=== PATIENT | female | born 1980 | race African-American/Black ===

== ENCOUNTER 2023-10-01 01:00 | Emergency (ER) | payer BC ==
--- OUTSIDE RECORDS SUMMARY | 2023-10-01 01:08 | XMS REPORT | Continuity of Care Document ---
Author Name Unknown Address [address] [facility] [address] [place] [address] [facility] thconnect Address [address] [facility] [address] [place] [address] Support Name Relationship Address Phone ROJAS PATE, BEATRIZ Mejia Emergency Provider [address] [place] [address] EVELYN PATE, MARQUISE Primary Care Physician [address] [facility] [address] [place] [address] JAIRO TREJO Family Member [address] [place] [address] SAUL PATE, MARY Arciniega Emergency Provider [address] [place] [address] RANDI PATE, MELISSA Reese Emergency Provider [address] [facility] [address] [place] [address] RENA PATE, YOUSIF Morrison Emergency Provider [address] [place], [place] [address] Jaylen CAROLINA DO Emergency Provider [address] [place] [address] ADELAIDA BARNES JR Attending Provider [address] [facility] [address] [place] [address] MD KIRSTIE VELASQUEZ MD Emergency Provider [address] [place] [address] MD KHANH CEDEÑO Emergency Provider Unknown Unava ilMD MARQUISE Sharif Primary Care Physician [address] [place] [address] DO AVERY MELO Emergency Provider [address] [address] MD GASPER RIZO Emergency Provider [address] [place] [address] MD JAIDA CLEMENT Emergency Provider [address] [place] [address] DO EFRAÍN DÍAZ Admitting Provider [address] [place] [address] CHELSIE TREJO Emergency Contact [address] [place] [address] ANA TREJO Guarantor [address] [place] [address] MD GINGER CERON Emergency Provider [address] [place] [address] Care Team Providers Care Stitch Bonding Machine Drawer In Name Role Phone GINGER CERON Attending Clinician Unavailab CRUZ Vallejo Attending Clinician Unavailable Nicole Attending Clinician Unavailable AMBROCIO LOPEZ Attending Clinician Unavailabl mary ann Ayeni_Ibitoye_Olubu Attending Clinician Unavaila clive Dorman Attending Clinician Unavailable EFRAÍN DÍAZ Attending Clinician Unavailable ISAMAR DALLAS Attending Clinician Unavailab Marquise Ordonez Attending Clinician Unavailab GASPER Bojorquez Attending Clinician UnavailKIRSTIE Alexander Attending Clinician Unavailable AVERY MELO Attending Clinician Unavailable KHANH CEDEÑO Attending Clinician Unavailable TALA DAVEY Attending Clinician Unavaila BILLY Gerardo Attending Clinician Unavail able MELISSA BRYAN Attending Clinician Unavailable ADELAIDA BARNES Attending Clinician Unavailable YOUSIF CHASE Attending Clinician Unavailable BEATRIZ XIE Attending Clinician Unavail able MARY HUGHES Attending Clinician Unavailable HOLLIE HAN Attending Clinician Unavailabl VIRY Epstein Attending Clinician Unavailable MELINA KIM Attending Clinician Unavailable MATT XAVIER Attending Clinician Unavailable Aaron Greenberg Attending Clinician Unavailable ANA PAULA RICHARDSON Attending Clinician Unavailab JESÚS quezada BA Attending Clinician Unavailable MASOUD CLARK Attending Clinician Unavailab FLAKITA Alvarado Attending Clinician Unavailable KADIE CHOI Attending Clinician Unavailable ROBI BENITES Attending Clinician SHEREE Jain Attending Clinician UnavailISSA Contreras Attending Clinician Un available KHANH JAUREGUI Attending Clinician UnavailLULU Harrison Attending Clinician Unavailable Zuniga_F Admitting Clinician Unavailable Ayeni_Ibitoye_Olubu Admitting Clinician Unavaila clive Hawkins_M Admitting Clinician Unavailable EFRAÍN DÍAZ Admitting Clinician Unavailable BILLY RACHEL Admitting Clinician Unavail able ADELAIDA BARNES Admitting Clinician Unavailable Aaron Greenberg Admitting Clinician Unavailable KHANH JAUREGUI Admitting Clinician Unavailelissa reese Payers Payer Name Policy Type Policy Number Effective Date Expirati on Date Source [place] [id number] 2020 00:00:00 AETNA (POS) [id number] 2014 00:00:00 Problems Condition Name Condition Details Condition Category Status Onset Date Resolution Date Last Treatment Date Treating Clinician Comments Source Acute urinary tract infection Acute Urinary Tract Infection Problem Active 01-30 00:00: 00 [facility] Allergies, Adverse Reactions, Alerts Allergy Name Allergy Type Status Severity Reaction(s) Onset Date Inactive Date Treating Clinician Comments Source PENICILL INS Allergy to substanc e Active [facility] Codeine Allergy to substanc e Active [facility] Tylenol Allergy to substanc e Active [facility] Social History Smoking Status Start Date Stop Date Source Former Smoker [facility] Medications Ordered Medication Name Filled Medication Name Start Date Stop Date Current Medication? Ordering Clinician Indication Dosage Frequency Signature (SIG) Comments Components Source Kenalog 40 mg/mL suspension for injectionTa ke 1 mL by injection route. Kenalog 40 mg/mL suspension for injectionTa ke 1 mL by injection route. 02-26 17:05: 00 No Kenalog 40 mg/mL suspension for injectionT efar 1 mL by injection route. [facility] ciprofloxac in 500 mg tablet TAKE 1 TABLET EVERY 12 HOURS BY ORAL ROUTE FOR 10 DAYS. ciprofloxac in 500 mg tablet TAKE 1 TABLET EVERY 12 HOURS BY ORAL ROUTE FOR 10 DAYS. No ciprofloxa evelia 500 mg tablet TAKE 1 TABLET EVERY 12 HOURS BY ORAL ROUTE FOR 10 DAYS. [facility] metronidazo le 500 mg tablet TAKE 1 TABLET EVERY 8 HOURS BY ORAL ROUTE FOR 10 DAYS. metronidazo le 500 mg tablet TAKE 1 TABLET EVERY 8 HOURS BY ORAL ROUTE FOR 10 DAYS. No metronidaz ole 500 mg tablet TAKE 1 TABLET EVERY 8 HOURS BY ORAL ROUTE FOR 10 DAYS. [facility] Medrol (Lázaro) 4 mg tablets in a dose pack Take 1 dose pk by oral route as directed. Medrol (Lázaro) 4 mg tablets in a dose pack Take 1 dose pk by oral route as directed. No 1dose pk(s) Medrol (Lázaro) 4 mg tablets in a dose pack Take 1 dose pk by oral route as directed. [facility] clotrimazol e-betametha sone 1 %-0.05 % topical cream APPLY TO THE AFFECTED AND SURROUNDING AREAS OF SKIN BY TOPICAL ROUTE 2 TIMES PER DAY IN THE MORNING AND EVENING FOR 2 WEEKS clotrimazol e-betametha sone 1 %-0.05 % topical cream APPLY TO THE AFFECTED AND SURROUNDING AREAS OF SKIN BY TOPICAL ROUTE 2 TIMES PER DAY IN THE MORNING AND EVENING FOR 2 WEEKS No clotrimazo le-betamet hasone 1 %-0.05 % topical cream APPLY TO THE AFFECTED AND SURROUNDIN G AREAS OF SKIN BY TOPICAL ROUTE 2 TIMES PER DAY IN THE MORNING AND EVENING FOR 2 WEEKS [facility] Vital Signs Vital Name Observation Time Observation Value Comments S ource Height 2023-02-18 00:00:00 67 [in_i] [facility] Body Weight 2023-02-18 00:00:00 3376 [oz_av] [facility] BP Systolic 2023-02-18 00:00:00 126 mm[Hg] [facility] BMI (Body Mass Index) 2023-02-18 00:00:00 33 kg/m2 [facility] BP Diastolic 2023-02-18 00:00:00 85 mm[Hg] [facility] BP Diastolic 2022-02-26 00:00:00 82 mm[Hg] [facility] Height 2022-02-26 00:00:00 67 [in_i] [facility] BMI (Body Mass Index) 2022-02-26 00:00:00 31.1 kg/m2 [facility] BP Systolic 2022-02-26 00:00:00 122 mm[Hg] [facility] Body Weight 2022-02-26 00:00:00 3176 [oz_av] [facility] BP Diastolic 2022-02-17 00:00:00 60 mm[Hg] [facility] Height 2022-02-17 00:00:00 67 [in_i] [facility] BMI (Body Mass Index) 2022-02-17 00:00:00 31.8 kg/m2 [facility] BP Systolic 2022-02-17 00:00:00 120 mm[Hg] [facility] Body Weight 2022-02-17 00:00:00 203 [lb_av] [facility] BP Diastolic 2022-01-28 00:00:00 65 mm[Hg] [facility] Height 2022-01-28 00:00:00 67 [in_i] [facility] BMI (Body Mass Index) 2022-01-28 00:00:00 31.9 kg/m2 [facility] BP Systolic 2022-01-28 00:00:00 106 mm[Hg] [facility] Body Weight 2022-01-28 00:00:00 3257.6 [oz_av] [facility] BP Diastolic 2021-06-27 00:00:00 73 mm[Hg] [facility] Height 2021-06-27 00:00:00 67 [in_i] [facility] BMI (Body Mass Index) 2021-06-27 00:00:00 31.3 kg/m2 [facility] BP Systolic 2021-06-27 00:00:00 108 mm[Hg] [facility] Body Weight 2021-06-27 00:00:00 3201 [oz_av] [facility] BP Diastolic 2021-06-20 00:00:00 78 mm[Hg] [facility] Height 2021-06-20 00:00:00 67 [in_i] [facility] BMI (Body Mass Index) 2021-06-20 00:00:00 31.2 kg/m2 [facility] BP Systolic 2021-06-20 00:00:00 112 mm[Hg] [facility] Body Weight 2021-06-20 00:00:00 3184 [oz_av] [facility] BP Diastolic 2021-05-15 00:00:00 73 mm[Hg] [facility] Height 2021-05-15 00:00:00 67 [in_i] [facility] BMI (Body Mass Index) 2021-05-15 00:00:00 31.7 kg/m2 [facility] BP Systolic 2021-05-15 00:00:00 112 mm[Hg] [facility] Body Weight 2021-05-15 00:00:00 3239 [oz_av] [facility] BP Diastolic 2021-05-08 00:00:00 66 mm[Hg] [facility] Height 2021-05-08 00:00:00 67 [in_i] [facility] BMI (Body Mass Index) 2021-05-08 00:00:00 31.3 kg/m2 [facility] BP Systolic 2021-05-08 00:00:00 98 mm[Hg] [facility] Body Weight 2021-05-08 00:00:00 3201 [oz_av] [facility] BP Diastolic 2021-03-14 00:00:00 72 mm[Hg] [facility] Height 2021-03-14 00:00:00 67 [in_i] [facility] BMI (Body Mass Index) 2021-03-14 00:00:00 31.8 kg/m2 [facility] BP Systolic 2021-03-14 00:00:00 106 mm[Hg] [facility] Body Weight 2021-03-14 00:00:00 3248 [oz_av] [facility] BP Diastolic 2021-01-30 00:00:00 75 mm[Hg] [facility] Height 2021-01-30 00:00:00 67 [in_i] [facility] BMI (Body Mass Index) 2021-01-30 00:00:00 32.1 kg/m2 [facility] BP Systolic 2021-01-30 00:00:00 119 mm[Hg] [facility] Body Weight 2021-01-30 00:00:00 3280 [oz_av] [facility] Height 2020-08-21 00:00:00 67 [in_i] [facility] BMI (Body Mass Index) 2020-08-21 00:00:00 33.3 kg/m2 [facility] BP Systolic 2020-08-21 00:00:00 108 mm[Hg] [facility] Body Weight 2020-08-21 00:00:00 3401 [oz_av] [facility] BP Diastolic 2020-08-21 00:00:00 71 mm[Hg] [facility] Height 2020-05-14 00:00:00 67 [in_i] [facility] BMI (Body Mass Index) 2020-05-14 00:00:00 32.3 kg/m2 [facility] Body Weight 2020-05-14 00:00:00 3296 [oz_av] [facility] BP Diastolic 2020-05-01 00:00:00 74 mm[Hg] [facility] Height 2020-05-01 00:00:00 67 [in_i] [facility] BMI (Body Mass Index) 2020-05-01 00:00:00 32.3 kg/m2 [facility] BP Systolic 2020-05-01 00:00:00 112 mm[Hg] [facility] Body Weight 2020-05-01 00:00:00 3297 [oz_av] [facility] BP Diastolic 2020-03-13 00:00:00 60 mm[Hg] [facility] Height 2020-03-13 00:00:00 67 [in_i] [facility] BMI (Body Mass Index) 2020-03-13 00:00:00 33.2 kg/m2 [facility] BP Systolic 2020-03-13 00:00:00 118 mm[Hg] [facility] Body Weight 2020-03-13 00:00:00 212 [lb_av] [facility] BP Diastolic 2020-02-23 00:00:00 68 mm[Hg] [facility] Height 2020-02-23 00:00:00 67 [in_i] [facility] BMI (Body Mass Index) 2020-02-23 00:00:00 32.3 kg/m2 [facility] BP Systolic 2020-02-23 00:00:00 107 mm[Hg] [facility] Body Weight 2020-02-23 00:00:00 3301 [oz_av] [facility] BP Diastolic 2019-08-02 00:00:00 74 mm[Hg] [facility] Height 2019-08-02 00:00:00 67 [in_i] [facility] BMI (Body Mass Index) 2019-08-02 00:00:00 33.5 kg/m2 [facility] BP Systolic 2019-08-02 00:00:00 121 mm[Hg] [facility] Body Weight 2019-08-02 00:00:00 214 [lb_av] [facility] BP Diastolic 2019-07-26 00:00:00 73 mm[Hg] [facility] Height 2019-07-26 00:00:00 67 [in_i] [facility] BMI (Body Mass Index) 2019-07-26 00:00:00 33.5 kg/m2 [facility] BP Systolic 2019-07-26 00:00:00 118 mm[Hg] [facility] Body Weight 2019-07-26 00:00:00 214 [lb_av] [facility] BP Diastolic 2019-07-21 00:00:00 78 mm[Hg] [facility] Height 2019-07-21 00:00:00 67 [in_i] [facility] BMI (Body Mass Index) 2019-07-21 00:00:00 33.7 kg/m2 [facility] BP Systolic 2019-07-21 00:00:00 113 mm[Hg] [facility] Body Weight 2019-07-21 00:00:00 3441 [oz_av] [facility] BP Diastolic 2019-02-08 00:00:00 75 mm[Hg] [facility] Height 2019-02-08 00:00:00 67 [in_i] [facility] BMI (Body Mass Index) 2019-02-08 00:00:00 36.5 kg/m2 [facility] BP Systolic 2019-02-08 00:00:00 117 mm[Hg] [facility] Body Weight 2019-02-08 00:00:00 3728 [oz_av] [facility] Procedures Procedure Date / Time Performed Performing Clinician Source Laparoscopic Appendectomy 2022-01-29 00:00:[address] [facility] [address], abdomen + pelvis, w/ contrast 2022-01-28 00:00:00 [facility] XR, ankle 2021-05-08 [facility] Delivery [facility] Cholecystectomy [facility] Plan of Care Planned Activity Planned Date Details Comments Source Diagnostic Test Pending 2022-01-28 00:00:00 urinalysis, dipstick [code = urinalysis, dipstick] [facility] Diagnostic Test Pending 2022-01-28 00:00:00 rapid SARS CoV + SARS CoV 2 Ag, QL IA, respiratory specimen [code = rapid SARS CoV + SARS CoV 2 Ag, QL IA, respiratory specimen] [facility] Diagnostic Test Pending 2022-01-28 00:00:00 CBC w/ auto diff [code = CBC w/ auto diff] [facility] Diagnostic Test Pending 2022-01-28 00:00:00 CMP, serum or plasma [code = CMP, serum or plasma] [facility] Diagnostic Test Pending 2022-01-28 00:00:00 test, urine [code = test, urine] [facility] Instructions [facility] Encounters Start Date/Time End Date/Time Encounter Type Admission Type Attending Clinicians Care Facility Care Department Encounter ID Source 2023-09-30 23:18:00 2023-09-30 23:48:00 Emergency ER GINGER CERON [facility] [id number] [facility] 2023-09-30 23:18:00 2023-09-30 23:48:00 emergency [facility] [id number] 2023-08-03 07:48:00 2023-08-03 10:10:00 Emergency ER CRUZ NAZARIO [facility] [id number] [facility] 2023-08-03 07:48:00 2023-08-03 10:10:00 emergency [facility] [id number] 2023-06-12 00:00:00 2023-06-12 00:00:00 Outpatient Zuniga_F [facility] [id number] [facility] 2023-05-26 00:00:00 2023-05-26 00:00:00 Outpatient Zuniga_F MMG MM[facility] [id number] [facility] 2023-04-21 23:49:00 2023-04-22 05:09:00 Emergency ER AMBROCIO LOPEZ [facility] [id number] [facility] 2023-04-21 23:49:00 2023-04-22 05:09:00 emergency [facility] [id number] 2023-04-21 00:00:00 2023-04-21 00:00:00 Outpatient Zuniga_F MMG [facility] [id number] [facility] 2023-04-16 00:00:00 2023-04-16 00:00:00 Outpatient Zuniga_F MMG [facility] [id number] [facility] 2023-04-01 00:00:00 2023-04-01 00:00:00 Outpatient Zuniga_F MMG [facility] [id number] [facility] 2023-03-17 00:00:00 2023-03-17 00:00:00 Outpatient Zuniga_F MMG [facility] [id number] [facility] 2023-03-03 21:19:00 2023-03-03 23:45:00 Emergency ER CRUZ NAZARIO [facility] [id number] [facility] 2023-02-18 00:00:00 2023-02-18 00:00:00 Outpatient Zuniga_F MMG [facility] [id number] [facility] 2023-02-18 00:00:00 2023-02-18 00:00:00 Marquise Zhou MD: [address] [place] [address], [address], [place] [address] , Ph. [facility] [id number] [facility] 2023-01-15 00:00:00 2023-01-15 00:00:00 Outpatient Zuniga_F MMG [facility] [id number] [facility] 2023-01-15 00:00:00 2023-01-15 00:00:00 Outpatient Zuniga_F MMG [facility] [id number] [facility] 2023-01-01 19:35:00 2023-01-01 22:18:00 Emergency ER CRUZ NAZARIO [facility] [id number] [facility] 2022-09-02 00:00:00 2022-09-02 00:00:00 Outpatient Ayeni_Ibito ye_Olubu [facility] [id number] [facility] 2022-09-02 00:00:00 2022-09-02 00:00:00 Outpatient Zuniga_F MMG MMG [id number] [facility] 2022-09-02 00:00:00 2022-09-02 00:00:00 Outpatient Zuniga_F MMG MMG [id number] [facility] 2022-07-23 16:39:00 2022-07-23 19:06:00 Emergency ER JESSIKASatishAMBROCIO [facility] [id number] [facility] 2022-04-21 00:00:00 2022-04-21 00:00:00 Outpatient Zuniga_F MMG MMG [id number] [facility] 2022-03-14 00:00:00 2022-03-14 00:00:00 Outpatient Zuniga_F MMG MMG [id number] [facility] 2022-02-27 00:00:00 2022-02-27 00:00:00 Outpatient Zuniga_F MMG MMG [id number] [facility] 2022-02-26 00:00:00 2022-02-26 00:00:00 Outpatient Zuniga_F MMG MMG [id number] [facility] 2022-02-26 00:00:00 2022-02-26 00:00:00 Marquise Zhou MD: [address] [place] [address] [address] [address] , Ph. MMG [facility] [id number] [facility] 2022-02-22 00:00:00 2022-02-22 00:00:00 Outpatient Zuniga_F MMG MMG [id number] [facility] 2022-02-20 00:00:00 2022-02-20 00:00:00 Outpatient Zuniga_F MMG MMG [id number] [facility] 2022-02-17 00:00:00 2022-02-17 00:00:00 Outpatient Zuniga_F MMG MMG [id number] [facility] 2022-02-17 00:00:00 2022-02-17 00:00:00 Efraín Díaz DO: [address] [facility] [address], [place] [address] , Ph. [phone] MMG [facility] surgery [id number] [facility] 2022-02-13 00:00:00 2022-02-13 00:00:00 Outpatient Zuniga_F MMG MM[facility] [id number] [facility] 2022-01-31 00:00:00 2022-01-31 00:00:00 Outpatient Chad_M MMG MMG [id number] [facility] 2022-01-29 15:44:00 2022-01-30 14:20:00 Inpatient ER EFRAÍN DÍAZ [facility] [id number] [facility] 2022-01-28 09:01:00 2022-01-28 09:01:00 Outpatient ISAMAR VELA [facility] [id number] [facility] 2022-01-28 00:00:00 2022-01-28 00:00:00 Outpatient Chad_M MMG MMG [id number] [facility] 2022-01-28 00:00:00 2022-01-28 00:00:00 Isamar Dallas, LOT ASSOCIATE: [address] [facility] [address], [place] [address] , Ph[address] MMG [facility] [id number] [facility] 2021-07-05 04:32:00 2021-07-05 04:32:00 Outpatient Zuniga_F MMG MMG [id number] [facility] 2021-06-27 00:00:00 2021-06-27 00:00:00 Marquise Zhou MD: [address] [facility] [address] [address] , Ph. Zuniga_F MMG [facility] [id number] [facility] 2021-06-21 03:36:00 2021-06-21 03:36:00 Outpatient Zuniga_F MMG MMG [id number] [facility] 2021-06-20 00:00:00 2021-06-20 00:00:00 Marquise Zhou MD: [address] [facility] [address] [address] , Ph. Zuniga_F MMG [facility] [id number] [facility] 2021-06-06 11:11:00 2021-06-06 11:11:00 Outpatient Zuniga_F MMG MMG [id number] [facility] 2021-05-19 01:22:00 2021-05-19 01:22:00 Outpatient Zuniga_F MMG MMG [id number] [facility] 2021-05-15 00:00:00 2021-05-15 00:00:00 Marquise Zhou MD: [address] [facility] [address] [place] [address] , Ph. Zuniga_F MMG [facility] [id number] [facility] 2021-05-14 11:11:00 2021-05-14 11:11:00 Outpatient Zuniga_F MMG MMG [id number] [facility] 2021-05-08 11:18:00 2021-05-08 11:18:00 Outpatient EL ZhouMarquise [facility] [id number] [facility] 2021-05-08 00:00:00 2021-05-08 00:00:00 Marquise Zhou MD: [address] [facility] [address], [place] [address] , Ph. Emigdiobarbra_F MMG [facility] [id number] [facility] 2021-03-21 05:54:00 2021-03-21 05:54:00 [facility] [id number] [facility] 2021-03-14 00:00:00 2021-03-14 00:00:00 Marquise Zhou MD: [address] [facility] [address], [place] [address] , Ph. Hawkins_M MMG [facility] [id number] [facility] 2021-02-21 04:02:00 2021-02-21 04:02:00 [place]patient [place] [id number] [facility] 2021-01-30 00:00:00 2021-01-30 00:00:00 Isamar Dallas, LOT ASSOCIATE: [address] [facility] [address], [place] [address] , Ph. Christinakins_M MMG [facility] [id number] [facility] 2020-11-07 23:14:00 2020-11-08 00:35:00 Emergency ER GASPER ROMAN [facility] [id number] [facility] 2020-09-24 07:21:00 2020-09-24 11:36:00 Emergency ER KIRSTIE VELASQUEZ [facility] [id number] [facility] 2020-08-21 00:00:00 2020-08-21 00:00:00 Marquise Zhou MD: [address] [facility] [address], [place] [address] , Ph. Zuniga_F MMG [facility] [id number] [facility] 2020-05-15 09:13:00 2020-05-15 09:13:00 Outpatient Zuniga_F MMG MMG [id number] [facility] 2020-05-14 00:00:00 2020-05-14 00:00:00 Marquise Zhou MD: [address] [facility] [address], [place] [address] , Ph. Zuniga_F MMG [facility] 1213 [facility] 2020-05-01 00:00:00 2020-05-01 00:00:00 Marquise Zhou MD: [address] [facility] [address], [place] [address] , Ph. Zuniga_F MMG [facility] 1201 [facility] 2020-04-30 03:49:00 2020-04-30 03:49:00 Outpatient Zuniga_F MMG MMG [id number] [facility] 2020-04-28 00:53:00 2020-04-28 02:38:00 Emergency ER AVERY MELO [facility] [id number] [facility] [facility] 2020-04-27 11:02:00 2020-04-27 11:51:00 Emergency ER KHANH CEDEÑO [facility] [id number] [facility] 2020-04-18 02:46:00 2020-04-18 02:46:00 Outpatient Zuniga_F [facility] [id number] [facility] 2020-04-08 01:05:00 2020-04-08 01:05:00 Outpatient Zuniga_F MMG MMG [id number] [facility] 2020-03-28 07:30:00 2020-03-28 07:30:00 Outpatient GUALBERTO DAVEYTALA [facility] [id number] [facility] 2020-03-28 05:24:00 2020-03-28 05:24:00 Outpatient Zuniga_F MMG MMG [id number] [facility] 2020-03-27 11:13:00 2020-03-27 11:13:00 Outpatient Zuniga_F MMG MMG [id number] [facility] 2020-03-16 01:21:00 2020-03-16 01:21:00 Outpatient Zuniga_F MMG MMG [id number] [facility] 2020-03-13 00:00:00 2020-03-13 00:00:00 Tala Davey MD: [address] [address] , Ph. [phone] Zuniga_F MMG [facility] surgery [id number] 1013 [facility] 2020-03-12 11:01:00 2020-03-12 11:01:00 Outpatient Zuniga_F MMG MMG [id number] [facility] 2020-03-07 11:19:00 2020-03-07 11:19:00 Outpatient ISAMAR VELA [facility] [id number] [facility] 2020-03-04 01:03:00 2020-03-04 01:03:00 Outpatient Zuniga_F MMG MMG [id number] [facility] 2020-02-23 00:00:00 2020-02-23 00:00:00 Isamar Dallas LOT ASSOCIATE: [address] [facility] [address] [address] , Ph. Zuniga_F MMG [facility] [id number] 0924 [facility] 2020-02-04 08:36:00 2020-02-04 08:36:00 Outpatient Zuniga_F MMG MMG [id number] [id number] [facility] 2020-02-02 11:08:00 2020-02-02 11:08:00 Outpatient GUALBERTO Zhou, Marquise [facility] [id number] [facility] 2020-02-01 00:00:00 2020-02-01 00:00:00 Marquise Zhou MD: [address] [facility] [address], [place] [address] , Ph. Zuniga_F MMG [facility] 0902 [facility] 2019-12-08 11:03:00 2019-12-08 11:03:00 Outpatient Zuniga_F MMG MMG [id number] [facility] 2019-10-13 11:03:00 2019-10-13 11:03:00 Outpatient Zuniga_F MMG MMG [id number] [facility] 2019-09-08 12:05:00 2019-09-08 12:05:00 Outpatient Zuniga_F MMG MMG [id number] [facility] 2019-08-31 11:52:00 2019-08-31 11:52:00 Outpatient Zuniga_F MMG MMG [id number] [facility] 2019-08-30 00:00:00 2019-08-30 00:00:00 Tala Davey MD: [address] [facility] [address], [place] [address] , Ph. [phone] Zuniga_F MMG [facility] [id number] 0331 [facility] 2019-08-26 12:43:00 2019-08-26 12:43:00 Outpatient Zuniga_F MMG MMG [id number] [facility] 2019-08-02 00:00:00 2019-08-02 00:00:00 Tala Davey MD: [address] [facility] [address] [id number] , Ph. [phone] Zuniga_F MMG [facility] 0303 [facility] 2019-07-27 03:01:00 2019-07-27 03:01:00 Outpatient Zuniga_F MMG MMG [id number] [facility] 2019-07-26 00:00:00 2019-07-26 00:00:00 Tala Davey MD: [address] [facility] [address] [id number] , Ph. [phone] Zuniga_F MMG [facility] 5 [facility] 2019-07-23 05:11:00 2019-07-23 05:11:00 Outpatient Zuniga_F MMG MMG [id number] [facility] 2019-07-21 00:00:00 2019-07-21 00:00:00 Marquise Zhou MD: [address] [facility] [address] [place], [place] [address] , Ph. Zuniga_F MMG [facility] 0 [facility] 2019-07-11 11:17:00 2019-07-11 11:17:00 Outpatient Zuniga_F MMG MMG 0 [facility] 2019-07-06 11:21:00 2019-07-08 16:03:00 Inpatient ER BILLY RACHEL [facility] [id number] [facility] 2019-07-03 23:45:00 2019-07-04 02:15:00 Emergency ER MELISSA BRYAN [facility] [id number] [facility] 2019-05-27 18:14:00 2019-05-27 20:07:00 Emergency ER GASPER ROMAN [facility] [id number] [facility] 2019-02-08 00:00:00 2019-02-08 00:00:00 Marquise Zhou MD: [address] [facility], [address], [place] [address] , Ph. MMG [place] [facility] 909 [facility] 2019-02-06 07:37:00 2019-02-06 07:37:00 Emergency ER KIRSTIE VELASQUEZ [facility] [id number] [facility] 2019-01-10 16:47:00 2019-01-11 17:39:00 Inpatient ER ADELAIDA [facility]ES [facility] [id number] [facility] 2018-12-16 16:46:00 2018-12-16 19:22:00 Emergency ER YOUSIF CHASE [facility] [id number] [facility] 2018-09-07 16:15:00 2018-09-07 19:15:00 Emergency ER MELISSA BRYAN [facility] [id number] [facility] 2018-09-05 15:02:00 2018-09-05 16:38:00 Emergency ER MELISSA BRYAN [facility] [id number] [facility] 2018-07-20 07:11:00 2018-07-20 08:51:00 Emergency ER BEATRIZ XIE [facility] [id number] [facility] 2018-06-19 13:36:00 2018-06-19 14:31:00 Emergency ER MARY HUGHES [facility] [id number] [facility] 2018-02-23 07:06:00 2018-02-23 10:04:00 Emergency ER BEATRIZ XIE [facility] [id number] [facility] 2017-12-15 10:13:00 2017-12-15 10:13:00 Outpatient Marquise Riddle [facility] [id number] [facility] 2017-12-02 13:57:00 2017-12-02 17:46:00 Emergency ER HAN HOLLIE [facility] [id number] [facility] 2017-11-26 18:53:00 2017-11-30 13:17:00 Inpatient ER NORMA RACHELDonna [facility] MED [id number] [facility] 2017-11-01 10:04:00 2017-11-01 11:09:00 Emergency ER BROOKLYN HANRGE [facility] [id number] [facility] 2017-08-18 17:17:00 2017-08-18 19:29:00 Emergency ER ROJAS BEATRIZ [facility] [id number] [facility] 2017-06-02 10:56:00 2017-06-02 10:56:00 Outpatient VIRY HUNTER [facility] [id number] [facility] 2017-04-27 11:06:00 2017-04-27 13:17:00 Emergency ER JARED CHASEValentina [facility] [id number] [facility] 2017-03-29 05:26:00 2017-03-29 06:41:00 Emergency ER MELINA KIM [facility] [id number] [facility] 2016-11-27 07:48:00 2016-11-27 11:24:00 Emergency ER MATT XAVIER [facility] [id number] [facility] 2016-11-23 12:55:00 2016-11-24 18:42:00 Inpatient ER Aaron Greenberg [facility] MED [id number] [facility] 2016-10-03 07:26:00 2016-10-03 08:47:00 Emergency ER ANA PAULA RICHARDSON [facility] [id number] [facility] 2016-03-11 11:30:00 2016-03-11 12:52:00 Emergency ER BEATRIZ XIE [facility] [id number] [facility] 2015-06-04 16:01:00 2015-06-04 16:38:00 Emergency ER BA, JESÚS [facility] [id number] [facility] 2015-02-11 11:02:00 2015-02-11 12:09:00 Emergency ER , WASIM [facility] [id number] [facility] 2014-01-01 08:06:00 2014-01-01 10:05:00 Emergency ER , WASIM [facility] [id number] [facility] 2013-12-06 17:52:00 2013-12-06 21:32:00 Emergency ER MELINA KIM [facility] [id number] [facility] 2013-11-28 15:51:00 2013-11-28 20:10:00 Emergency ER MASOUD CLARK [facility] [id number] [facility] 2013-10-26 10:12:00 2013-10-26 10:35:00 Emergency ER ANA PAULA RICHARDSON [facility] [id number] [facility] 2013-10-16 10:08:00 2013-10-16 11:33:00 Emergency ER BA, JESÚS [facility] [id number] [facility] 2013-08-31 07:55:00 2013-08-31 10:02:00 Emergency ER BA, JESÚS [facility] [id number] [facility] 2013-07-02 02:48:00 2013-07-02 04:11:00 Emergency ER DEBRA, CLEMENT [facility] [id number] [facility] 2013-04-12 09:11:00 2013-04-12 12:05:00 Emergency ER DEBRA, CLEMENT [facility] [id number] [facility] 2013-03-27 11:19:00 2013-03-27 12:06:00 Emergency ER SHEIKH WASALEXANDRIA [facility] [id number] [facility] 2013-03-23 10:36:00 2013-03-23 11:44:00 Emergency ER MELINA KIM [facility] [id number] [facility] 2012-09-30 08:01:00 2012-09-30 11:53:00 Emergency ER MELINA KIM [facility] [id number] [facility] 2012-07-30 08:56:00 2012-07-30 09:42:00 Emergency ER FLAKITA STEVENSON [facility] [id number] [facility] 2010-07-19 08:28:00 2010-07-19 09:35:00 Emergency ER RANJEETORALMAZ, CLEMENT [facility] [id number] [facility] 2010-04-05 11:22:00 2010-04-05 13:20:00 Emergency ER JIMBO, KADIE [facility] [id number] [facility] 2009-07-11 11:11:00 2009-07-11 12:32:00 Emergency ER UGORJI, CLEMENT [facility] [id number] [facility] 2008-05-16 19:25:00 2008-05-16 21:33:00 Emergency ER IMMARAJ, PREMSWARUP [facility] [id number] [facility] 2007-01-31 11:50:00 2007-01-31 15:08:00 Emergency ER SHEREE SORTO [facility] [id number] [facility] 2006-12-22 09:37:00 2006-12-22 10:25:00 Emergency ER SHEREE SORTO [facility] [id number] [facility] 2006-08-13 10:26:00 2006-08-13 12:00:00 Emergency ER ISSA ROBLES [facility] [id number] [facility] 2006-02-10 12:34:00 2006-02-10 16:55:00 Emergency ER ANA PAULA RICHARDSON [facility] [id number] [facility] 2005-12-13 23:30:00 2005-12-14 09:10:00 Inpatient ER SHANIA KHANH [facility] [id number] [facility] 2005-12-07 09:01:00 2005-12-07 11:51:00 Emergency ER LULU LAMB [facility] [id number] [facility] 2004-12-20 10:49:00 2004-12-20 14:55:00 Emergency ER ANA PAULA RICHARDSON [facility] [id number] [facility] Results Test Description Test Time Test Comments Results Result Co mments Source [facility], [id number] 08:52:50* Test Item Value Reference Range Interpretation Comme nts Test (test code = Test) negative [facility], [id number] 08:52:50* Test Item Value Reference Range Interpretation Comme nts Test (test code = Test) negative [facility] Ag [Presence] in Respiratory specimen by Rapid [id number] 08:52:10* Test Item Value Reference Range Interpretation Comme nts SARS-CoV - 2 (test code = SA RS-CoV - 2) negative [facility]CoV-2 (COVID-19) Ag [Presence] in Respiratory specimen by Rapid [id number] 08:52:10* Test Item Value Reference Range Interpretation Comme nts SARS-CoV - 2 (test code = SA RS-CoV - 2) negative [facility]+SARS-CoV-2 (COVID-19) Ag [Presence] in Respiratory specimen by Rapid [id number] 08:52:10* Test Item Value Reference Range Interpretation Comme nts SARS-CoV - 2 (test code = SA RS-CoV - 2) negative [facility] Group[facility]inalysis macro (dipstick) panel - [id number] 08:52:01* Test Item Value Reference Range Interpretation Comme nts Leukocytes (test code = Leukocytes) Negative Nitrite (test code = Nitrite) negative Urobilinogen (test code = Urobilinogen) .2 Protein (test code = Protein) Negative pH (test code = pH) 5.5 Blood (test code = Blood) Negative Specific [place] (test code = Specific [place]) 1.020 Ketone (test code = Ketone) Negative Bilirubin (test code = Bilirubin) Negative Glucose (test code = Glucose) Negative Appearance (test code = Appearance) Clear Color (test code = Color) Yellow [facility] macro (dipstick) panel - [id number] 08:52:01* Test Item Value Reference Range Interpretation Comme nts Leukocytes (test code = Leukocytes) Negative Nitrite (test code = Nitrite) negative Urobilinogen (test code = Urobilinogen) .2 Protein (test code = Protein) Negative pH (test code = pH) 5.5 Blood (test code = Blood) Negative Specific [place] (test code = Specific [place]) 1.020 Ketone (test code = Ketone) Negative Bilirubin (test code = Bilirubin) Negative Glucose (test code = Glucose) Negative Appearance (test code = Appearance) Clear Color (test code = Color) Yellow [facility] macro (dipstick) panel - [id number] 08:52:01* Test Item Value Reference Range Interpretation Comme nts Leukocytes (test code = Leukocytes) Negative Nitrite (test code = Nitrite) negative Urobilinogen (test code = Urobilinogen) .2 Protein (test code = Protein) Negative pH (test code = pH) 5.5 Blood (test code = Blood) Negative Specific [place] (test code = Specific [place]) 1.020 Ketone (test code = Ketone) Negative Bilirubin (test code = Bilirubin) Negative Glucose (test code = Glucose) Negative Appearance (test code = Appearance) Clear Color (test code = Color) Yellow [facility] W Auto Differential panel - [id number] 12:20:00 * Test Item Value Reference Range Interpretation Comme nts white blood count (test code = white blood count) 7.2 K/uL 4.0-11.5 red blood count (test code = red blood count) 4.20 M/uL 3.80-5.20 hemoglobin (test code = hemoglobin) 10.8 g/dL 10.5-15.7 hematocrit (test code = hematocrit) 33.7 % 34.0-50.0 L MCV [Entitic volume] (test c ode = 23717-6) 80.2 fL 86-100 L mean corpuscular hemoglobin (test code = mean corpuscular hemoglobin) 25.7 pg 26.2-33.4 L mean corpuscular HGB conc (t est code = mean corpuscular HGB conc) 32.0 g/dL 30-34 red cell distribution width (test code = red cell distribution width) 14.4 % 12.0-15.5 platelet count (test code = platelet count) 287 K/uL 165-450 mean platelet volume (test c ode = mean platelet volume) 9.3 fL 9.4-12.6 L Segmented neutrophils/100 leukocytes in Blood (test code = 31226-5) 54.7 % 44.4-80.1 Immature granulocytes [#/vol ume] in Blood (test code = 50727-9) 0.0 K/uL 0.0-0.03 lymphocyte% (test code = lymphocyte%) 30.7 % 10.0-50.0 mono % (test code = mono %) 11.5 % 3.6-12.0 eos % (test code = eos %) 2.4 % 0.0-5.4 Basophils/100 leukocytes in Unspecified specimen (test code = 95277-4) 0.4 % 0.1-1.2 Band form neutrophils [#/vol ume] in Blood (test code = 44559-5) 3.93 K/uL 1.56-6.13 Lymphocytes [#/volume] in Unspecified specimen by Automated count (test code = 81228-2) 2.2 K/uL 1.18-3.74 mono # (test code = mono #) 0.83 K/uL 0.24-0.86 eos # (test code = eos #) 0.17 K/uL 0.04-0.36 basophil # (test code = baso jonathan #) 0.03 K/uL 0.01-0.08 NRBC% (test code = NRBC%) 0 /100 WBC 0-0.2 NRBC# (test code = NRBC#) 0 K/uL [facility] CenterDifferent[facility], method unspecified - [id number] 12:20:00NeutrophilsBandLymphocyteAtypical LymphMonocyteEosinophilBasophilDifferential CommentPlatelet EstimatePlatelet MorphologyAnisocytosisToxic GranulationHypersegmented PolysDifferential comment-PMataChoctaw Health CenterPT/[id number] 12:20:00* Test Item Value Reference Range Interpretation Comme nts prothrombin time (test code = prothrombin time) 10.5 seconds 10.3-12.3 INR in Blood by Coagulation assay (test code = 92487-9) 0.98 [facility] Centerpartial thromboplastin [id number] 12:20:00* Test Item Value Reference Range Interpretation Comme nts INR in Blood by Coagulation assay (test code = 96240-3) 26.9 seconds 22.5-37.0 [facility] CenterComprehensive metabolic 2000 panel - Serum or Plasma 2020-04-28 12:20:00* Test Item Value Reference Range Interpretation Comme nts glucose (test code = glucose) 110 mg/dL 74-106 H Urea nitrogen [Mass/volume] in Serum or Plasma (test code = 3094-0) 23 mg/dL 6-20 H osmolality calculated,serum (test code = osmolality calculated,serum) 276 mOsm/kg 280-300 L creatinine (test code = creatinine) 0.9 mg/dL 0.50-0.90 glomerular filtration rate ( test code = glomerular filtration rate) >60.00 Urea nitrogen/Creatinine [Ma ss Ratio] in Serum or Plasma (test code = 3097-3) 25.6 12-20 H sodium level (test code = so dium level) 136 mmol/L 135-145 Potassium [Moles/volume] in Body fluid (test code = 2821-7) 3.6 mmol/L 3.5-5.2 chloride level (test code = chloride level) 101 mmol/L 98-108 CO2 (test code = CO2) 25 mmol/L 21-32 anion gap (test code = anion gap) 13.6 mEq/L 12-20 calcium level (test code = calcium level) 9.1 mg/dL 8.6-10.0 total protein (test code = t otal protein) 6.7 g/dL 6.6-8.7 albumin (test code = albumin) 3.7 g/dL 3.5-5.2 globulin (test code = globulin) 3.0 gm/dL A/G ratio (test code = A/G ratio) 1.2 >1.0 bilirubin,total (test code = bilirubin,total) 0.4 mg/dL 0.0-1.2 AST/SGOT (test code = AST/SGOT) 50 U/L 15-32 H Alanine aminotransferase [Enzymatic activity/volume] in Serum or Plasma (test code = 1742-6) 33 U/L 0-33 Alkaline phosphatase [Enzyma tic activity/volume] in Serum or Plasma (test code = 6768-6) 86 U/L 35-105 [facility] Group[facility]ine kinase [Enzymatic activity/volume] in Serum or [id number] 12:20:00* Test Item Value Reference Range Interpretation Comme nts creatine kinase (test code = creatine kinase) 230 U/L 20-180 H [facility] GroupNatriuretic peptide.B prohormone N-Terminal [Mass/volume] in Serum or [id number] 12:20:00* Test Item Value Reference Range Interpretation Comme nts N-term pro natriuretic pepti de (test code = N-term pro natriuretic peptide) 70 pg/mL 0-125 [facility] GroupTroponin I.cardiac [Mass/volume] in [id number] 12:20:00* Test Item Value Reference Range Interpretation Comme nts cardiac troponin I (test cod e = cardiac troponin I) <0.30 0.0-0.5 [facility] CenterCreatine kinase.MB [Mass/volume] in Serum or Plasma 2020-04-28 12:20:00* Test Item Value Reference Range Interpretation Comme nts Creatine kinase.MB [Mass/vol ume] in Serum or Plasma by Immunoassay (test code = 84796-0) 4.6 NG/mL 0.0-3.6 H [facility] W Auto Differential panel - [id number] 12:20:00 * Test Item Value Reference Range Interpretation Comme nts white blood count (test code = white blood count) 7.2 K/uL 4.0-11.5 red blood count (test code = red blood count) 4.20 M/uL 3.80-5.20 hemoglobin (test code = hemoglobin) 10.8 g/dL 10.5-15.7 hematocrit (test code = hematocrit) 33.7 % 34.0-50.0 L MCV [Entitic volume] (test c ode = 20986-1) 80.2 fL 86-100 L mean corpuscular hemoglobin (test code = mean corpuscular hemoglobin) 25.7 pg 26.2-33.4 L mean corpuscular HGB conc (t est code = mean corpuscular HGB conc) 32.0 g/dL 30-34 red cell distribution width (test code = red cell distribution width) 14.4 % 12.0-15.5 platelet count (test code = platelet count) 287 K/uL 165-450 mean platelet volume (test c ode = mean platelet volume) 9.3 fL 9.4-12.6 L Segmented neutrophils/100 leukocytes in Blood (test code = 62937-8) 54.7 % 44.4-80.1 Immature granulocytes [#/vol ume] in Blood (test code = 20386-3) 0.0 K/uL 0.0-0.03 lymphocyte% (test code = lymphocyte%) 30.7 % 10.0-50.0 mono % (test code = mono %) 11.5 % 3.6-12.0 eos % (test code = eos %) 2.4 % 0.0-5.4 Basophils/100 leukocytes in Unspecified specimen (test code = 62880-5) 0.4 % 0.1-1.2 Band form neutrophils [#/vol ume] in Blood (test code = 29336-2) 3.93 K/uL 1.56-6.13 Lymphocytes [#/volume] in Unspecified specimen by Automated count (test code = 89572-7) 2.2 K/uL 1.18-3.74 mono # (test code = mono #) 0.83 K/uL 0.24-0.86 eos # (test code = eos #) 0.17 K/uL 0.04-0.36 basophil # (test code = baso jonathan #) 0.03 K/uL 0.01-0.08 NRBC% (test code = NRBC%) 0 /100 WBC 0-0.2 NRBC# (test code = NRBC#) 0 K/uL [facility] CenterDifferential panel, method unspecified - [id number] 12:20:00NeutrophilsBandLymphocyteAtypical LymphMonocyteEosinophilBasophilDifferential CommentPlatelet EstimatePlatelet MorphologyAnisocytosisToxic GranulationHypersegmented PolysDifferential comment-[facility] CenterPT/[id number] 12:20:00* Test Item Value Reference Range Interpretation Comme nts prothrombin time (test code = prothrombin time) 10.5 seconds 10.3-12.3 INR in Blood by Coagulation assay (test code = 17018-7) 0.98 [facility] Centerpartial thromboplastin [id number] 12:20:00* Test Item Value Reference Range Interpretation Comme nts INR in Blood by Coagulation assay (test code = 80128-6) 26.9 seconds 22.5-37.0 [facility] CenterComprehensive metabolic 2000 panel - Serum or Plasma 2020-04-28 12:20:00* Test Item Value Reference Range Interpretation Comme nts glucose (test code = glucose) 110 mg/dL 74-106 H Urea nitrogen [Mass/volume] in Serum or Plasma (test code = 3094-0) 23 mg/dL 6-20 H osmolality calculated,serum (test code = osmolality calculated,serum) 276 mOsm/kg 280-300 L creatinine (test code = creatinine) 0.9 mg/dL 0.50-0.90 glomerular filtration rate ( test code = glomerular filtration rate) >60.00 Urea nitrogen/Creatinine [Ma ss Ratio] in Serum or Plasma (test code = 3097-3) 25.6 12-20 H sodium level (test code = so dium level) 136 mmol/L 135-145 Potassium [Moles/volume] in Body fluid (test code = 2821-7) 3.6 mmol/L 3.5-5.2 chloride level (test code = chloride level) 101 mmol/L 98-108 CO2 (test code = CO2) 25 mmol/L 21-32 anion gap (test code = anion gap) 13.6 mEq/L 12-20 calcium level (test code = calcium level) 9.1 mg/dL 8.6-10.0 total protein (test code = t otal protein) 6.7 g/dL 6.6-8.7 albumin (test code = albumin) 3.7 g/dL 3.5-5.2 globulin (test code = globulin) 3.0 gm/dL A/G ratio (test code = A/G ratio) 1.2 >1.0 bilirubin,total (test code = bilirubin,total) 0.4 mg/dL 0.0-1.2 AST/SGOT (test code = AST/SGOT) 50 U/L 15-32 H Alanine aminotransferase [Enzymatic activity/volume] in Serum or Plasma (test code = 1742-6) 33 U/L 0-33 Alkaline phosphatase [Enzyma tic activity/volume] in Serum or Plasma (test code = 6768-6) 86 U/L 35-105 [facility] GroupCreatine kinase [Enzymatic activity/volume] in Serum or [id number] 12:20:00* Test Item Value Reference Range Interpretation Comme nts creatine kinase (test code = creatine kinase) 230 U/L 20-180 H [facility] GroupNatriuretic peptide.B prohormone N-Terminal [Mass/volume] in Serum or [id number] 12:20:00* Test Item Value Reference Range Interpretation Comme nts N-term pro natriuretic pepti de (test code = N-term pro natriuretic peptide) 70 pg/mL 0-125 [facility] CenterTrop[facility] I.cardiac [Mass/volume] in [id number] 12:20:00* Test Item Value Reference Range Interpretation Comme nts cardiac troponin I (test cod e = cardiac troponin I) <0.30 0.0-0.5 [facility] CenterCreatine kinase.MB [Mass/volume] in Serum or Plasma 2020-04-28 12:20:00* Test Item Value Reference Range Interpretation Comme nts Creatine kinase.MB [Mass/vol ume] in Serum or Plasma by Immunoassay (test code = 35785-8) 4.6 NG/mL 0.0-3.6 H [facility] W Auto Differential panel - [id number] 12:20:00 * Test Item Value Reference Range Interpretation Comme [facility] white blood count (test code = white blood count) 7.2 K/uL 4.0-11.5 red blood count (test code = red blood count) 4.20 M/uL 3.80-5.20 hemoglobin (test code = hemoglobin) 10.8 g/dL 10.5-15.7 hematocrit (test code = hematocrit) 33.7 % 34.0-50.0 L MCV [Entitic volume] (test c ode = 23831-5) 80.2 fL 86-100 L mean corpuscular hemoglobin (test code = mean corpuscular hemoglobin) 25.7 pg 26.2-33.4 L mean corpuscular HGB conc (t est code = mean corpuscular HGB conc) 32.0 g/dL 30-34 red cell distribution width (test code = red cell distribution width) 14.4 % 12.0-15.5 platelet count (test code = platelet count) 287 K/uL 165-450 mean platelet volume (test c ode = mean platelet volume) 9.3 fL 9.4-12.6 L Segmented neutrophils/100 leukocytes in Blood (test code = 16992-0) 54.7 % 44.4-80.1 Immature granulocytes [#/vol ume] in Blood (test code = 25986-6) 0.0 K/uL 0.0-0.03 lymphocyte% (test code = lymphocyte%) 30.7 % 10.0-50.0 mono % (test code = mono %) 11.5 % 3.6-12.0 eos % (test code = eos %) 2.4 % 0.0-5.4 Basophils/100 leukocytes in Unspecified specimen (test code = 02918-2) 0.4 % 0.1-1.2 Band form neutrophils [#/vol ume] in Blood (test code = 81355-7) 3.93 K/uL 1.56-6.13 Lymphocytes [#/volume] in Unspecified specimen by Automated count (test code = 70308-3) 2.2 K/uL 1.18-3.74 mono # (test code = mono #) 0.83 K/uL 0.24-0.86 eos # (test code = eos #) 0.17 K/uL 0.04-0.36 basophil # (test code = baso jonathan #) 0.03 K/uL 0.01-0.08 NRBC% (test code = NRBC%) 0 /100 WBC 0-0.2 NRBC# (test code = NRBC#) 0 K/uL [facility] CenterDifferential panel, method unspecified - [id number] 12:20:00NeutrophilsBandLymphocyteAtypical LymphMonocyteEosinophilBasophilDifferential CommentPlatelet EstimatePlatelet MorphologyAnisocytosisToxic GranulationHypersegmented PolysDifferential comment-PMaSinging River GulfportPT/[id number] 12:20:00* Test Item Value Reference Range Interpretation Comme nts prothrombin time (test code = prothrombin time) 10.5 seconds 10.3-12.3 INR in Blood by Coagulation assay (test code = 72360-3) 0.98 [facility] Centerpartial thromboplastin [id number] 12:20:00* Test Item Value Reference Range Interpretation Comme nts INR in Blood by Coagulation assay (test code = 80443-8) 26.9 seconds 22.5-37.0 [facility] CenterComprehensive metabolic 2000 panel - Serum or Plasma 2020-04-28 12:20:00* Test Item Value Reference Range Interpretation Comme nts glucose (test code = glucose) 110 mg/dL 74-106 H Urea nitrogen [Mass/volume] in Serum or Plasma (test code = 3094-0) 23 mg/dL 6-20 H osmolality calculated,serum (test code = osmolality calculated,serum) 276 mOsm/kg 280-300 L creatinine (test code = creatinine) 0.9 mg/dL 0.50-0.90 glomerular filtration rate ( test code = glomerular filtration rate) >60.00 Urea nitrogen/Creatinine [Ma ss Ratio] in Serum or Plasma (test code = 3097-3) 25.6 12-20 H sodium level (test code = so dium level) 136 mmol/L 135-145 Potassium [Moles/volume] in Body fluid (test code = 2821-7) 3.6 mmol/L 3.5-5.2 chloride level (test code = chloride level) 101 mmol/L 98-108 CO2 (test code = CO2) 25 mmol/L 21-32 anion gap (test code = anion gap) 13.6 mEq/L 12-20 calcium level (test code = calcium level) 9.1 mg/dL 8.6-10.0 total protein (test code = t otal protein) 6.7 g/dL 6.6-8.7 albumin (test code = albumin) 3.7 g/dL 3.5-5.2 globulin (test code = globulin) 3.0 gm/dL A/G ratio (test code = A/G ratio) 1.2 >1.0 bilirubin,total (test code = bilirubin,total) 0.4 mg/dL 0.0-1.2 AST/SGOT (test code = AST/SGOT) 50 U/L 15-32 H Alanine aminotransferase [Enzymatic activity/volume] in Serum or Plasma (test code = 1742-6) 33 U/L 0-33 Alkaline phosphatase [Enzyma tic activity/volume] in Serum or Plasma (test code = 6768-6) 86 U/L 35-105 [facility] [Enzymatic activity/volume] in Serum or Dhakmj1444-79-77 12:20:00* Test Item Value Reference Range Interpretation Comme [facility] creatine kinase (test code = creatine kinase) 230 U/L 20-180 H [facility] GroupNatriuretic peptide.B prohormone N-Terminal [Mass/volume] in Serum or Krxdnk8652-61-21 12:20:00* Test Item Value Reference Range Interpretation Comme nts N-term pro natriuretic pepti de (test code = N-term pro natriuretic peptide) 70 pg/mL 0-125 [facility] CenterTroponin I.cardiac [Mass/volume] in Ihgsm0173-76-22 12:20:00* Test Item Value Reference Range Interpretation Comme nts cardiac troponin I (test cod e = cardiac troponin I) <0.30 0.0-0.5 [facility] CenterCreatine kinase.MB [Mass/volume] in Serum or Plasma 2020-04-28 12:20:00* Test Item Value Reference Range Interpretation Comme nts Creatine kinase.MB [Mass/vol ume] in Serum or Plasma by Immunoassay (test code = 70749-9) 4.6 NG/mL 0.0-3.6 H [facility] CenterUrinalysis complete W Reflex Culture panel - Urine 2020-03-07 09:30:00* Test Item Value Reference Range Interpretation Comme nts Color of Urine by Auto (test code = 23830-7) colorless Appearance of Urine (test co de = 5767-9) clear clear Glucose [Presence] in Urine by Automated test strip (test code = 25844-0) negative negative Bilirubin.total [Mass/volume ] in Urine (test code = 1978-6) negative negative Ketones [Mass/volume] in Uri ne by Automated test strip (test code = 66843-5) negative negative Specific gravity of Urine by Automated test strip (test code = 55074-2) 1.013 1.003-1.030 blood urine (test code = blo od urine) negative negative pH of Urine (test code = 2756-5) 5.500 5-9 protein urine (UA) (test cod e = protein urine (UA)) negative negative Urobilinogen [Presence] in Urine (test code = 21425-4) normal 0.2-1.0 Nitrite [Presence] in Urine by Test strip (test code = 5802-4) negative negative Leukocyte esterase [Presence ] in Urine by Automated test strip (test code = 03828-6) negative negative Erythrocytes [#/volume] in Urine by Automated count (test code = 798-9) <1 0-5 Leukocytes [#/area] in Urine sediment by Automated count (test code = 03232-2) <1 0-5 Epithelial cells [Presence] in Urine sediment by Light microscopy (test code = 87302-2) <1 0-5 Bacteria identified in Urine by Culture (test code = 630-4) none detected none detect Casts [#/area] in Urine sediment by Automated count (test code = 64662-7) none detected none detect urine culture added? (test c ode = urine culture added?) no [facility] CenterUrinalysis macro (dipstick) panel - [id number] 11:55:48* Test Item Value Reference Range Interpretation Comme nts Leukocytes (test code = Leukocytes) Small Nitrite (test code = Nitrite) negative Urobilinogen (test code = Urobilinogen) .2 Protein (test code = Protein) Negative pH (test code = pH) 6.0 Blood (test code = Blood) Non-Hemolyzed: Trace Specific [place] (test code = Specific [place]) 1.030 Ketone (test code = Ketone) Negative Bilirubin (test code = Bilirubin) Negative Glucose (test code = Glucose) Negative Appearance (test code = Appearance) Turbid Color (test code = Color) Yellow [facility] CenterUrinalysis macro (dipstick) panel - Ktrsy7556-94-95 11:55:48* Test Item Value Reference Range Interpretation Comme nts Leukocytes (test code = Leukocytes) Small Nitrite (test code = Nitrite) negative Urobilinogen (test code = Urobilinogen) .2 Protein (test code = Protein) Negative pH (test code = pH) 6.0 Blood (test code = Blood) Non-Hemolyzed: Trace Specific [place] (test code = Specific [place]) 1.030 Ketone (test code = Ketone) Negative Bilirubin (test code = Bilirubin) Negative Glucose (test code = Glucose) Negative Appearance (test code = Appearance) Turbid Color (test code = Color) Yellow [facility] CenterCB W Auto Differential panel - [id number] 09:12:00 * Test Item Value Reference Range Interpretation Comme nts white blood count (test code = white blood count) 5.2 K/uL 4.0-11.5 red blood count (test code = red blood count) 4.19 M/uL 3.80-5.20 hemoglobin (test code = hemoglobin) 11.4 g/dL 10.5-15.7 hematocrit (test code = hematocrit) 34.5 % 34.0-50.0 MCV [Entitic volume] (test c ode = 82693-6) 82.3 fL 86-100 L mean corpuscular hemoglobin (test code = mean corpuscular hemoglobin) 27.2 pg 26.2-33.4 mean corpuscular HGB conc (t est code = mean corpuscular HGB conc) 33.0 g/dL 30-34 red cell distribution width (test code = red cell distribution width) 13.6 % 12.0-15.5 platelet count (test code = platelet count) 374 K/uL 165-450 mean platelet volume (test c ode = mean platelet volume) 9.0 fL 9.4-12.6 L Segmented neutrophils/100 leukocytes in Blood (test code = 45438-0) 45.1 % 44.4-80.1 Immature granulocytes [#/vol ume] in Blood (test code = 22558-7) 0.0 K/uL 0.0-0.03 lymphocyte% (test code = lymphocyte%) 42.2 % 10.0-50.0 mono % (test code = mono %) 10.2 % 3.6-12.0 eos % (test code = eos %) 1.3 % 0.0-5.4 Basophils/100 leukocytes in Unspecified specimen (test code = 04687-4) 0.8 % 0.1-1.2 Band form neutrophils [#/vol ume] in Blood (test code = 77534-6) 2.35 K/uL 1.56-6.13 Lymphocytes [#/volume] in Unspecified specimen by Automated count (test code = 49512-8) 2.2 K/uL 1.18-3.74 mono # (test code = mono #) 0.53 K/uL 0.24-0.86 eos # (test code = eos #) 0.07 K/uL 0.04-0.36 basophil # (test code = baso jonathan #) 0.04 K/uL 0.01-0.08 NRBC% (test code = NRBC%) 0 /100 WBC 0-0.2 NRBC# (test code = NRBC#) 0 K/uL [facility] CenterDifferential panel, method unspecified - [id number] 09:12:00NeutrophilsBandLymphocyteAtypical LymphMonocyteEosinophilBasophilNucleated Red Blood CellDifferential CommentPlatelet EstimatePlatelet MorphologyMicrocytosisMacrocytosisToxic GranulationToxic VacuolationMiss[facility] CenterComprehensive metabolic 2000 panel - Serum or [id number] 09:12:00* Test Item Value Reference Range Interpretation Comme nts glucose (test code = glucose) 93 mg/dL 74-106 Urea nitrogen [Mass/volume] in Serum or Plasma (test code = 3094-0) 11 mg/dL 6-20 osmolality calculated,serum (test code = osmolality calculated,serum) 267 mOsm/kg 280-300 L creatinine (test code = creatinine) 0.6 mg/dL 0.50-0.90 glomerular filtration rate ( test code = glomerular filtration rate) >60.00 Urea nitrogen/Creatinine [Ma ss Ratio] in Serum or Plasma (test code = 3097-3) 18.3 12-20 sodium level (test code = so dium level) 134 mmol/L 135-145 L Potassium [Moles/volume] in Body fluid (test code = 2821-7) 3.7 mmol/L 3.5-5.2 chloride level (test code = chloride level) 100 mmol/L 98-108 CO2 (test code = CO2) 25 mmol/L 21-32 anion gap (test code = anion gap) 12.7 mEq/L 12-20 calcium level (test code = calcium level) 9.4 mg/dL 8.6-10.0 total protein (test code = t otal protein) 7.3 g/dL 6.6-8.7 albumin (test code = albumin) 4.0 g/dL 3.5-5.2 globulin (test code = globulin) 3.3 gm/dL A/G ratio (test code = A/G ratio) 1.2 >1.0 bilirubin,total (test code = bilirubin,total) 0.7 mg/dL 0.0-1.2 AST/SGOT (test code = AST/SGOT) 23 U/L 15-32 Alanine aminotransferase [Enzymatic activity/volume] in Serum or Plasma (test code = 1742-6) 24 U/L 0-33 Alkaline phosphatase [Enzyma tic activity/volume] in Serum or Plasma (test code = 6768-6) 78 U/L 35-105 [facility] CenterLipid 1996 panel - Serum or [id number] 09:12:00* Test Item Value Reference Range Interpretation Comme nts cholesterol level (test code = cholesterol level) 114 mg/dL 150-200 L triglycerides level (test co de = triglycerides level) 52 mg/dL <150 HDL cholesterol (test code = HDL cholesterol) 70 mg/dL >65 LDL cholesterol direct (test code = LDL cholesterol direct) 40 mg/dL <100 cholesterol risk ratio (test code = cholesterol risk ratio) 1.628 [facility] CenterHemoglobin A1c [Mass/volume] in Ouyns8706-40-69 09:12:00 * Test Item Value Reference Range Interpretation Comme [facility] Hemoglobin A1c [Mass/volume] in Blood (test code = 93219-1) 5.6 % 4.0-6.0 [facility] CenterThyrotropin [Units/volume] in Serum or Kttghj7466-81-24 09:12:00* Test Item Value Reference Range Interpretation Comme nts Thyrotropin [Units/volume] i n Serum or Plasma (test code = 3016-3) 0.72 uIU/mL 0.36-3.74 [facility] W Auto Differential panel - [id number] 02:44:00 * Test Item Value Reference Range Interpretation Comme nts white blood count (test code = white blood count) 6.8 K/uL 4.0-11.5 red blood count (test code = red blood count) 3.73 M/uL 3.80-5.20 L hemoglobin (test code = hemoglobin) 9.6 g/dL 10.5-15.7 L hematocrit (test code = hematocrit) 29.0 % 34.0-50.0 L Erythrocyte mean corpuscular volume [Entitic volume] (test code = 34209-9) 77.7 fL 86-100 L mean corpuscular hemoglobin (test code = mean corpuscular hemoglobin) 25.7 pg 26.2-33.4 L mean corpuscular HGB conc (t est code = mean corpuscular HGB conc) 33.1 g/dL 30-34 red cell distribution width (test code = red cell distribution width) 14.9 % 12.0-15.5 platelet count (test code = platelet count) 301 K/uL 165-450 mean platelet volume (test c ode = mean platelet volume) 9.1 fL 9.4-12.6 L Neutrophils.segmented/100 leukocytes in Blood (test code = 79519-7) 58.2 % 44.4-80.1 Granulocytes Immature [#/vol ume] in Blood (test code = 65754-7) 0.0 K/uL 0.0-0.03 lymphocyte% (test code = lymphocyte%) 29.3 % 10.0-50.0 mono % (test code = mono %) 10.8 % 3.6-12.0 eos % (test code = eos %) 1.0 % 0.0-5.4 Basophils/100 leukocytes in Unspecified specimen (test code = 79345-1) 0.4 % 0.1-1.2 Neutrophils.band form [#/vol ume] in Blood (test code = 16938-9) 3.93 K/uL 1.56-6.13 Lymphocytes [#/volume] in Unspecified specimen by Automated count (test code = 75941-2) 2.0 K/uL 1.18-3.74 mono # (test code = mono #) 0.73 K/uL 0.24-0.86 eos # (test code = eos #) 0.07 K/uL 0.04-0.36 basophil # (test code = baso jonathan #) 0.03 K/uL 0.01-0.08 NRBC% (test code = NRBC%) 0 /100 WBC 0-0.2 NRBC# (test code = NRBC#) 0 K/uL [facility] CenterComprehensive [facility] 2000 panel - Serum or Plasma 2019-07-08 02:44:00* Test Item Value Reference Range Interpretation Comme nts Glucose [Mass/volume] in Ser um or Plasma (test code = 2345-7) 90 mg/dL 74-106 Urea nitrogen [Mass/volume] in Serum or Plasma (test code = 3094-0) 6 mg/dL 6-20 osmolality calculated,serum (test code = osmolality calculated,serum) 267 mOsm/kg 280-300 L creatinine (test code = creatinine) 0.6 mg/dL 0.50-0.90 glomerular filtration rate ( test code = glomerular filtration rate) >60.00 Urea nitrogen/Creatinine [Ma ss Ratio] in Serum or Plasma (test code = 3097-3) 10.0 12-20 L sodium level (test code = so dium level) 135 mmol/L 135-145 potassium level (test code = potassium level) 3.8 mmol/L 3.5-5.2 chloride level (test code = chloride level) 106 mmol/L 98-108 CO2 (test code = CO2) 22 mmol/L 21-32 anion gap (test code = anion gap) 10.8 mEq/L 12-20 L calcium level (test code = calcium level) 8.2 mg/dL 8.6-10.0 L total protein (test code = t otal protein) 5.7 g/dL 6.6-8.7 L albumin (test code = albumin) 2.8 g/dL 3.5-5.2 L globulin (test code = globulin) 2.9 gm/dL A/G ratio (test code = A/G ratio) 1.0 >1.0 bilirubin,total (test code = bilirubin,total) 0.5 mg/dL 0.0-1.2 AST/SGOT (test code = AST/SGOT) 28 U/L 15-32 Alanine aminotransferase [Enzymatic activity/volume] in Serum or Plasma (test code = 1742-6) 116 U/L 0-33 H Alkaline phosphatase [Enzyma tic activity/volume] in Serum or Plasma (test code = 6768-6) 119 U/L 35-105 H [facility] GroupPhosphate [Mass/volume] in Serum or [id number] 02:44:00* Test Item Value Reference Range Interpretation Comme nts phosphorous level (test code = phosphorous level) 2.5 mg/dL 2.5-4.5 [facility] GroupMagnesium [Moles/volume] in Unspecified specimen 2019-07-08 02:44:00* Test Item Value Reference Range Interpretation Comme nts magnesium level (test code = magnesium level) 1.6 mg/dL 1.6-2.6 [facility] W Auto Differential panel - [id number] 02:44:00 * Test Item Value Reference Range Interpretation Comme nts white blood count (test code = white blood count) 6.8 K/uL 4.0-11.5 red blood count (test code = red blood count) 3.73 M/uL 3.80-5.20 L hemoglobin (test code = hemoglobin) 9.6 g/dL 10.5-15.7 L hematocrit (test code = hematocrit) 29.0 % 34.0-50.0 L Erythrocyte mean corpuscular volume [Entitic volume] (test code = 84108-7) 77.7 fL 86-100 L mean corpuscular hemoglobin (test code = mean corpuscular hemoglobin) 25.7 pg 26.2-33.4 L mean corpuscular HGB conc (t est code = mean corpuscular HGB conc) 33.1 g/dL 30-34 red cell distribution width (test code = red cell distribution width) 14.9 % 12.0-15.5 platelet count (test code = platelet count) 301 K/uL 165-450 mean platelet volume (test c ode = mean platelet volume) 9.1 fL 9.4-12.6 L Neutrophils.segmented/100 leukocytes in Blood (test code = 36272-5) 58.2 % 44.4-80.1 Granulocytes Immature [#/vol ume] in Blood (test code = 74533-9) 0.0 K/uL 0.0-0.03 lymphocyte% (test code = lymphocyte%) 29.3 % 10.0-50.0 mono % (test code = mono %) 10.8 % 3.6-12.0 eos % (test code = eos %) 1.0 % 0.0-5.4 Basophils/100 leukocytes in Unspecified specimen (test code = 03253-1) 0.4 % 0.1-1.2 Neutrophils.band form [#/vol ume] in Blood (test code = 65521-6) 3.93 K/uL 1.56-6.13 Lymphocytes [#/volume] in Unspecified specimen by Automated count (test code = 45307-9) 2.0 K/uL 1.18-3.74 mono # (test code = mono #) 0.73 K/uL 0.24-0.86 eos # (test code = eos #) 0.07 K/uL 0.04-0.36 basophil # (test code = baso jonathan #) 0.03 K/uL 0.01-0.08 NRBC% (test code = NRBC%) 0 /100 WBC 0-0.2 NRBC# (test code = NRBC#) 0 K/uL [facility] CenterComprehensive [facility] 2000 panel - Serum or Plasma 2019-07-08 02:44:00* Test Item Value Reference Range Interpretation Comme nts Glucose [Mass/volume] in Ser um or Plasma (test code = 2345-7) 90 mg/dL 74-106 Urea nitrogen [Mass/volume] in Serum or Plasma (test code = 3094-0) 6 mg/dL 6-20 osmolality calculated,serum (test code = osmolality calculated,serum) 267 mOsm/kg 280-300 L creatinine (test code = creatinine) 0.6 mg/dL 0.50-0.90 glomerular filtration rate ( test code = glomerular filtration rate) >60.00 Urea nitrogen/Creatinine [Ma ss Ratio] in Serum or Plasma (test code = 3097-3) 10.0 12-20 L sodium level (test code = so dium level) 135 mmol/L 135-145 potassium level (test code = potassium level) 3.8 mmol/L 3.5-5.2 chloride level (test code = chloride level) 106 mmol/L 98-108 CO2 (test code = CO2) 22 mmol/L 21-32 anion gap (test code = anion gap) 10.8 mEq/L 12-20 L calcium level (test code = calcium level) 8.2 mg/dL 8.6-10.0 L total protein (test code = t otal protein) 5.7 g/dL 6.6-8.7 L albumin (test code = albumin) 2.8 g/dL 3.5-5.2 L globulin (test code = globulin) 2.9 gm/dL A/G ratio (test code = A/G ratio) 1.0 >1.0 bilirubin,total (test code = bilirubin,total) 0.5 mg/dL 0.0-1.2 AST/SGOT (test code = AST/SGOT) 28 U/L 15-32 Alanine aminotransferase [Enzymatic activity/volume] in Serum or Plasma (test code = 1742-6) 116 U/L 0-33 H Alkaline phosphatase [Enzyma tic activity/volume] in Serum or Plasma (test code = 6768-6) 119 U/L 35-105 H [facility] GroupPhosphate [Mass/volume] in Serum or [id number] 02:44:00* Test Item Value Reference Range Interpretation Comme nts phosphorous level (test code = phosphorous level) 2.5 mg/dL 2.5-4.5 [facility] GroupMagnesium [Moles/volume] in Unspecified specimen 2019-07-08 02:44:00* Test Item Value Reference Range Interpretation Comme nts magnesium level (test code = magnesium level) 1.6 mg/dL 1.6-2.6 [facility] W Auto Differential panel - [id number] 02:44:00 * Test Item Value Reference Range Interpretation Comme nts white blood count (test code = white blood count) 6.8 K/uL 4.0-11.5 red blood count (test code = red blood count) 3.73 M/uL 3.80-5.20 L hemoglobin (test code = hemoglobin) 9.6 g/dL 10.5-15.7 L hematocrit (test code = hematocrit) 29.0 % 34.0-50.0 L Erythrocyte mean corpuscular volume [Entitic volume] (test code = 87216-8) 77.7 fL 86-100 L mean corpuscular hemoglobin (test code = mean corpuscular hemoglobin) 25.7 pg 26.2-33.4 L mean corpuscular HGB conc (t est code = mean corpuscular HGB conc) 33.1 g/dL 30-34 red cell distribution width (test code = red cell distribution width) 14.9 % 12.0-15.5 platelet count (test code = platelet count) 301 K/uL 165-450 mean platelet volume (test c ode = mean platelet volume) 9.1 fL 9.4-12.6 L Neutrophils.segmented/100 leukocytes in Blood (test code = 75172-2) 58.2 % 44.4-80.1 Granulocytes Immature [#/vol ume] in Blood (test code = 91706-4) 0.0 K/uL 0.0-0.03 lymphocyte% (test code = lymphocyte%) 29.3 % 10.0-50.0 mono % (test code = mono %) 10.8 % 3.6-12.0 eos % (test code = eos %) 1.0 % 0.0-5.4 Basophils/100 leukocytes in Unspecified specimen (test code = 65804-8) 0.4 % 0.1-1.2 Neutrophils.band form [#/vol ume] in Blood (test code = 54271-0) 3.93 K/uL 1.56-6.13 Lymphocytes [#/volume] in Unspecified specimen by Automated count (test code = 68218-9) 2.0 K/uL 1.18-3.74 mono # (test code = mono #) 0.73 K/uL 0.24-0.86 eos # (test code = eos #) 0.07 K/uL 0.04-0.36 basophil # (test code = baso jonathan #) 0.03 K/uL 0.01-0.08 NRBC% (test code = NRBC%) 0 /100 WBC 0-0.2 NRBC# (test code = NRBC#) 0 K/uL [facility] CenterCom[facility] 2000 panel - Serum or Plasma 2019-07-08 02:44:00* Test Item Value Reference Range Interpretation Comme nts Glucose [Mass/volume] in Ser um or Plasma (test code = 2345-7) 90 mg/dL 74-106 Urea nitrogen [Mass/volume] in Serum or Plasma (test code = 3094-0) 6 mg/dL 6-20 osmolality calculated,serum (test code = osmolality calculated,serum) 267 mOsm/kg 280-300 L creatinine (test code = creatinine) 0.6 mg/dL 0.50-0.90 glomerular filtration rate ( test code = glomerular filtration rate) >60.00 Urea nitrogen/Creatinine [Ma ss Ratio] in Serum or Plasma (test code = 3097-3) 10.0 12-20 L sodium level (test code = so dium level) 135 mmol/L 135-145 potassium level (test code = potassium level) 3.8 mmol/L 3.5-5.2 chloride level (test code = chloride level) 106 mmol/L 98-108 CO2 (test code = CO2) 22 mmol/L 21-32 anion gap (test code = anion gap) 10.8 mEq/L 12-20 L calcium level (test code = calcium level) 8.2 mg/dL 8.6-10.0 L total protein (test code = t otal protein) 5.7 g/dL 6.6-8.7 L albumin (test code = albumin) 2.8 g/dL 3.5-5.2 L globulin (test code = globulin) 2.9 gm/dL A/G ratio (test code = A/G ratio) 1.0 >1.0 bilirubin,total (test code = bilirubin,total) 0.5 mg/dL 0.0-1.2 AST/SGOT (test code = AST/SGOT) 28 U/L 15-32 Alanine aminotransferase [Enzymatic activity/volume] in Serum or Plasma (test code = 1742-6) 116 U/L 0-33 H Alkaline phosphatase [Enzyma tic activity/volume] in Serum or Plasma (test code = 6768-6) 119 U/L 35-105 [facility] GroupPh[facility] [Mass/volume] in Serum or [id number] 02:44:00* Test Item Value Reference Range Interpretation Comme nts phosphorous level (test code = phosphorous level) 2.5 mg/dL 2.5-4.5 [facility] GroupMagnesium [Moles/volume] in Unspecified specimen 2019-07-08 02:44:00* Test Item Value Reference Range Interpretation Comme nts magnesium level (test code = magnesium level) 1.6 mg/dL 1.6-2.6 [facility] W Auto Differential panel - [id number] 04:27:00 * Test Item Value Reference Range Interpretation Comme nts white blood count (test code = white blood count) 5.9 K/uL 4.0-11.5 red blood count (test code = red blood count) 4.10 M/uL 3.80-5.20 hemoglobin (test code = hemoglobin) 10.6 g/dL 10.5-15.7 hematocrit (test code = hematocrit) 32.5 % 34.0-50.0 L Erythrocyte mean corpuscular volume [Entitic volume] (test code = 03891-8) 79.3 fL 86-100 L mean corpuscular hemoglobin (test code = mean corpuscular hemoglobin) 25.9 pg 26.2-33.4 L mean corpuscular HGB conc (t est code = mean corpuscular HGB conc) 32.6 g/dL 30-34 red cell distribution width (test code = red cell distribution width) 15.1 % 12.0-15.5 platelet count (test code = platelet count) 316 K/uL 165-450 mean platelet volume (test c ode = mean platelet volume) 9.2 fL 9.4-12.6 L Neutrophils.segmented/100 leukocytes in Blood (test code = 58208-4) 58.0 % 44.4-80.1 Granulocytes Immature [#/vol ume] in Blood (test code = 56766-2) 0.0 K/uL 0.0-0.03 lymphocyte% (test code = lymphocyte%) 28.8 % 10.0-50.0 mono % (test code = mono %) 10.7 % 3.6-12.0 eos % (test code = eos %) 1.5 % 0.0-5.4 Basophils/100 leukocytes in Unspecified specimen (test code = 40929-8) 0.7 % 0.1-1.2 Neutrophils.band form [#/vol ume] in Blood (test code = 90381-9) 3.43 K/uL 1.56-6.13 Lymphocytes [#/volume] in Unspecified specimen by Automated count (test code = 87419-4) 1.7 K/uL 1.18-3.74 mono # (test code = mono #) 0.63 K/uL 0.24-0.86 eos # (test code = eos #) 0.09 K/uL 0.04-0.36 basophil # (test code = baso jonathan #) 0.04 K/uL 0.01-0.08 NRBC% (test code = NRBC%) 0 /100 WBC 0-0.2 NRBC# (test code = NRBC#) 0 K/uL [facility], [id number] 04:27:00 NeutrophilsBandLymphocyteMonocyteEosinophilPlatelet EstimateDifferential comment-[facility] CenterComprehensive metabolic 2000 panel - Serum or [id number] 04:27:00* Test Item Value Reference Range Interpretation Comme nts Glucose [Mass/volume] in Ser um or Plasma (test code = 2345-7) 76 mg/dL 74-106 Urea nitrogen [Mass/volume] in Serum or Plasma (test code = 3094-0) 9 mg/dL 6-20 osmolality calculated,serum (test code = osmolality calculated,serum) 273 mOsm/kg 280-300 L creatinine (test code = creatinine) 0.6 mg/dL 0.50-0.90 glomerular filtration rate ( test code = glomerular filtration rate) >60.00 Urea nitrogen/Creatinine [Ma ss Ratio] in Serum or Plasma (test code = 3097-3) 15.0 12-20 sodium level (test code = so dium level) 138 mmol/L 135-145 potassium level (test code = potassium level) 3.9 mmol/L 3.5-5.2 chloride level (test code = chloride level) 107 mmol/L 98-108 CO2 (test code = CO2) 21 mmol/L 21-32 anion gap (test code = anion gap) 13.9 mEq/L 12-20 calcium level (test code = calcium level) 8.6 mg/dL 8.6-10.0 total protein (test code = t otal protein) 6.1 g/dL 6.6-8.7 L albumin (test code = albumin) 3.1 g/dL 3.5-5.2 L globulin (test code = globulin) 3.0 gm/dL A/G ratio (test code = A/G ratio) 1.0 >1.0 bilirubin,total (test code = bilirubin,total) 0.6 mg/dL 0.0-1.2 AST/SGOT (test code = AST/SGOT) 65 U/L 15-32 Alanine aminotransferase [Enzymatic activity/volume] in Serum or Plasma (test code = 1742-6) 178 U/L 0-33 H Alkaline phosphatase [Enzyma tic activity/volume] in Serum or Plasma (test code = 6768-6) 142 U/L 35-105 H [facility] CenterPhosphate [Mass/volume] in Serum or [id number] 04:27:00* Test Item Value Reference Range Interpretation Comme nts phosphorous level (test code = phosphorous level) 2.4 mg/dL 2.5-4.5 L [facility] CenterMagnesium [Moles/volume] in Unspecified specimen 2019-07-07 04:27:00* Test Item Value Reference Range Interpretation Comme nts magnesium level (test code = magnesium level) 1.7 mg/dL 1.6-2.6 [facility] CenterCBC W Auto Differential panel - [id number] 04:27:00 * Test Item Value Reference Range Interpretation Comme nts white blood count (test code = white blood count) 5.9 K/uL 4.0-11.5 red blood count (test code = red blood count) 4.10 M/uL 3.80-5.20 hemoglobin (test code = hemoglobin) 10.6 g/dL 10.5-15.7 hematocrit (test code = hematocrit) 32.5 % 34.0-50.0 L Erythrocyte mean corpuscular volume [Entitic volume] (test code = 01157-7) 79.3 fL 86-100 L mean corpuscular hemoglobin (test code = mean corpuscular hemoglobin) 25.9 pg 26.2-33.4 L mean corpuscular HGB conc (t est code = mean corpuscular HGB conc) 32.6 g/dL 30-34 red cell distribution width (test code = red cell distribution width) 15.1 % 12.0-15.5 platelet count (test code = platelet count) 316 K/uL 165-450 mean platelet volume (test c ode = mean platelet volume) 9.2 fL 9.4-12.6 L Neutrophils.segmented/100 leukocytes in Blood (test code = 91368-7) 58.0 % 44.4-80.1 Granulocytes Immature [#/vol ume] in Blood (test code = 46288-6) 0.0 K/uL 0.0-0.03 lymphocyte% (test code = lymphocyte%) 28.8 % 10.0-50.0 mono % (test code = mono %) 10.7 % 3.6-12.0 eos % (test code = eos %) 1.5 % 0.0-5.4 Basophils/100 leukocytes in Unspecified specimen (test code = 00843-4) 0.7 % 0.1-1.2 Neutrophils.band form [#/vol ume] in Blood (test code = 76281-3) 3.43 K/uL 1.56-6.13 Lymphocytes [#/volume] in Unspecified specimen by Automated count (test code = 73343-8) 1.7 K/uL 1.18-3.74 mono # (test code = mono #) 0.63 K/uL 0.24-0.86 eos # (test code = eos #) 0.09 K/uL 0.04-0.36 basophil # (test code = baso jonathan #) 0.04 K/uL 0.01-0.08 NRBC% (test code = NRBC%) 0 /100 WBC 0-0.2 NRBC# (test code = NRBC#) 0 K/uL [facility] Centerdifferent[facility], [id number] 04:27:00 NeutrophilsBandLymphocyteMonocyteEosinophilPlatelet EstimateDifferential comment-[facility] CenterComprehensive metabolic 2000 panel - Serum or [id number] 04:27:00* Test Item Value Reference Range Interpretation Comme nts Glucose [Mass/volume] in Ser um or Plasma (test code = 2345-7) 76 mg/dL 74-106 Urea nitrogen [Mass/volume] in Serum or Plasma (test code = 3094-0) 9 mg/dL 6-20 osmolality calculated,serum (test code = osmolality calculated,serum) 273 mOsm/kg 280-300 L creatinine (test code = creatinine) 0.6 mg/dL 0.50-0.90 glomerular filtration rate ( test code = glomerular filtration rate) >60.00 Urea nitrogen/Creatinine [Ma ss Ratio] in Serum or Plasma (test code = 3097-3) 15.0 12-20 sodium level (test code = so dium level) 138 mmol/L 135-145 potassium level (test code = potassium level) 3.9 mmol/L 3.5-5.2 chloride level (test code = chloride level) 107 mmol/L 98-108 CO2 (test code = CO2) 21 mmol/L 21-32 anion gap (test code = anion gap) 13.9 mEq/L 12-20 calcium level (test code = calcium level) 8.6 mg/dL 8.6-10.0 total protein (test code = t otal protein) 6.1 g/dL 6.6-8.7 L albumin (test code = albumin) 3.1 g/dL 3.5-5.2 L globulin (test code = globulin) 3.0 gm/dL A/G ratio (test code = A/G ratio) 1.0 >1.0 bilirubin,total (test code = bilirubin,total) 0.6 mg/dL 0.0-1.2 AST/SGOT (test code = AST/SGOT) 65 U/L 15-32 Alanine aminotransferase [Enzymatic activity/volume] in Serum or Plasma (test code = 1742-6) 178 U/L 0-33 H Alkaline phosphatase [Enzyma tic activity/volume] in Serum or Plasma (test code = 6768-6) 142 U/L 35-105 [facility]Ph[facility] [Mass/volume] in Serum or [id number] 04:27:00* Test Item Value Reference Range Interpretation Comme [facility] phosphorous level (test code = phosphorous level) 2.4 mg/dL 2.5-4.5 L [facility] CenterMagnesium [Moles/volume] in Unspecified specimen 2019-07-07 04:27:00* Test Item Value Reference Range Interpretation Comme [facility] magnesium level (test code = magnesium level) 1.7 mg/dL 1.6-2.6 [facility] W Auto Differential panel - [id number] 04:27:00 * Test Item Value Reference Range Interpretation Comme nts white blood count (test code = white blood count) 5.9 K/uL 4.0-11.5 red blood count (test code = red blood count) 4.10 M/uL 3.80-5.20 hemoglobin (test code = hemoglobin) 10.6 g/dL 10.5-15.7 hematocrit (test code = hematocrit) 32.5 % 34.0-50.0 L Erythrocyte mean corpuscular volume [Entitic volume] (test code = 97049-0) 79.3 fL 86-100 L mean corpuscular hemoglobin (test code = mean corpuscular hemoglobin) 25.9 pg 26.2-33.4 L mean corpuscular HGB conc (t est code = mean corpuscular HGB conc) 32.6 g/dL 30-34 red cell distribution width (test code = red cell distribution width) 15.1 % 12.0-15.5 platelet count (test code = platelet count) 316 K/uL 165-450 mean platelet volume (test c ode = mean platelet volume) 9.2 fL 9.4-12.6 L Neutrophils.segmented/100 leukocytes in Blood (test code = 64174-2) 58.0 % 44.4-80.1 Granulocytes Immature [#/vol ume] in Blood (test code = 71713-0) 0.0 K/uL 0.0-0.03 lymphocyte% (test code = lymphocyte%) 28.8 % 10.0-50.0 mono % (test code = mono %) 10.7 % 3.6-12.0 eos % (test code = eos %) 1.5 % 0.0-5.4 Basophils/100 leukocytes in Unspecified specimen (test code = 91366-7) 0.7 % 0.1-1.2 Neutrophils.band form [#/vol ume] in Blood (test code = 20477-8) 3.43 K/uL 1.56-6.13 Lymphocytes [#/volume] in Unspecified specimen by Automated count (test code = 61554-7) 1.7 K/uL 1.18-3.74 mono # (test code = mono #) 0.63 K/uL 0.24-0.86 eos # (test code = eos #) 0.09 K/uL 0.04-0.36 basophil # (test code = baso jonathan #) 0.04 K/uL 0.01-0.08 NRBC% (test code = NRBC%) 0 /100 WBC 0-0.2 NRBC# (test code = NRBC#) 0 K/uL [facility] Centerdifferential panel, [id number] 04:27:00 NeutrophilsBandLymphocyteMonocyteEosinophilPlatelet EstimateDifferential comment-[facility] CenterComprehensive metabolic 2000 panel - Serum or [id number] 04:27:00* Test Item Value Reference Range Interpretation Comme nts Glucose [Mass/volume] in Ser um or Plasma (test code = 2345-7) 76 mg/dL 74-106 Urea nitrogen [Mass/volume] in Serum or Plasma (test code = 3094-0) 9 mg/dL 6-20 osmolality calculated,serum (test code = osmolality calculated,serum) 273 mOsm/kg 280-300 L creatinine (test code = creatinine) 0.6 mg/dL 0.50-0.90 glomerular filtration rate ( test code = glomerular filtration rate) >60.00 Urea nitrogen/Creatinine [Ma ss Ratio] in Serum or Plasma (test code = 3097-3) 15.0 12-20 sodium level (test code = so dium level) 138 mmol/L 135-145 potassium level (test code = potassium level) 3.9 mmol/L 3.5-5.2 chloride level (test code = chloride level) 107 mmol/L 98-108 CO2 (test code = CO2) 21 mmol/L 21-32 anion gap (test code = anion gap) 13.9 mEq/L 12-20 calcium level (test code = calcium level) 8.6 mg/dL 8.6-10.0 total protein (test code = t otal protein) 6.1 g/dL 6.6-8.7 L albumin (test code = albumin) 3.1 g/dL 3.5-5.2 L globulin (test code = globulin) 3.0 gm/dL A/G ratio (test code = A/G ratio) 1.0 >1.0 bilirubin,total (test code = bilirubin,total) 0.6 mg/dL 0.0-1.2 AST/SGOT (test code = AST/SGOT) 65 U/L 15-32 Alanine aminotransferase [Enzymatic activity/volume] in Serum or Plasma (test code = 1742-6) 178 U/L 0-33 H Alkaline phosphatase [Enzyma tic activity/volume] in Serum or Plasma (test code = 6768-6) 142 U/L 35-105 H [facility] GroupPhosphate [Mass/volume] in Serum or [id number] 04:27:00* Test Item Value Reference Range Interpretation Comme nts phosphorous level (test code = phosphorous level) 2.4 mg/dL 2.5-4.5 L [facility] CenterMagnesium [Moles/volume] in Unspecified specimen 2019-07-07 04:27:00* Test Item Value Reference Range Interpretation Comme nts magnesium level (test code = magnesium level) 1.7 mg/dL 1.6-2.6 [facility] CenterCB W Auto Differential panel - [id number] 05:58:00 * Test Item Value Reference Range Interpretation Comme nts white blood count (test code = white blood count) 5.6 K/uL 4.0-11.5 red blood count (test code = red blood count) 4.26 M/uL 3.80-5.20 hemoglobin (test code = hemoglobin) 10.9 g/dL 10.5-15.7 hematocrit (test code = hematocrit) 33.9 % 34.0-50.0 L Erythrocyte mean corpuscular volume [Entitic volume] (test code = 08276-5) 79.6 fL 86-100 L mean corpuscular hemoglobin (test code = mean corpuscular hemoglobin) 25.6 pg 26.2-33.4 L mean corpuscular HGB conc (t est code = mean corpuscular HGB conc) 32.2 g/dL 30-34 red cell distribution width (test code = red cell distribution width) 15.1 % 12.0-15.5 platelet count (test code = platelet count) 335 K/uL 165-450 mean platelet volume (test c ode = mean platelet volume) 9.1 fL 9.4-12.6 L Neutrophils.segmented/100 leukocytes in Blood (test code = 38681-7) 64.2 % 44.4-80.1 Granulocytes Immature [#/vol ume] in Blood (test code = 25221-2) 0.0 K/uL 0.0-0.03 lymphocyte% (test code = lymphocyte%) 23.8 % 10.0-50.0 mono % (test code = mono %) 10.0 % 3.6-12.0 eos % (test code = eos %) 1.3 % 0.0-5.4 Basophils/100 leukocytes in Unspecified specimen (test code = 60251-6) 0.5 % 0.1-1.2 Neutrophils.band form [#/vol ume] in Blood (test code = 89678-5) 3.60 K/uL 1.56-6.13 Lymphocytes [#/volume] in Unspecified specimen by Automated count (test code = 67401-7) 1.3 K/uL 1.18-3.74 mono # (test code = mono #) 0.56 K/uL 0.24-0.86 eos # (test code = eos #) 0.07 K/uL 0.04-0.36 basophil # (test code = baso jonathan #) 0.03 K/uL 0.01-0.08 NRBC% (test code = NRBC%) 0 /100 WBC 0-0.2 NRBC# (test code = NRBC#) 0 K/uL [facility] Centerdifferential panel, [id number] 05:58:00 NeutrophilsBandLymphocyteMonocyteEosinophilPlatelet EstimateMaSinging River GulfportComprehensive metabolic 2000 panel - Serum or [id number] 05:58:00* Test Item Value Reference Range Interpretation Comme nts Glucose [Mass/volume] in Ser um or Plasma (test code = 2345-7) 93 mg/dL 74-106 Urea nitrogen [Mass/volume] in Serum or Plasma (test code = 3094-0) 9 mg/dL 6-20 osmolality calculated,serum (test code = osmolality calculated,serum) 269 mOsm/kg 280-300 L creatinine (test code = creatinine) 0.7 mg/dL 0.50-0.90 glomerular filtration rate ( test code = glomerular filtration rate) >60.00 Urea nitrogen/Creatinine [Ma ss Ratio] in Serum or Plasma (test code = 3097-3) 12.9 12-20 sodium level (test code = so dium level) 135 mmol/L 135-145 potassium level (test code = potassium level) 4.1 mmol/L 3.5-5.2 chloride level (test code = chloride level) 102 mmol/L 98-108 CO2 (test code = CO2) 24 mmol/L 21-32 anion gap (test code = anion gap) 13.1 mEq/L 12-20 calcium level (test code = calcium level) 8.7 mg/dL 8.6-10.0 total protein (test code = t otal protein) 6.4 g/dL 6.6-8.7 L albumin (test code = albumin) 3.3 g/dL 3.5-5.2 L globulin (test code = globulin) 3.1 gm/dL A/G ratio (test code = A/G ratio) 1.1 >1.0 bilirubin,total (test code = bilirubin,total) 1.1 mg/dL 0.0-1.2 AST/SGOT (test code = AST/SGOT) 210 U/L 15-32 H Alanine aminotransferase [Enzymatic activity/volume] in Serum or Plasma (test code = 1742-6) 289 U/L 0-33 H Alkaline phosphatase [Enzyma tic activity/volume] in Serum or Plasma (test code = 6768-6) 177 U/L 35-105 H [facility] Centerlprocal2020-02-[facility] 05:58:00* Test Item Value Reference Range Interpretation Comme nts Procalcitonin [Mass/volume] in Serum or Plasma (test code = 08943-6) 0.1 NG/mL 0.0-0.8 [facility] CenterPhosphate [Mass/volume] in Serum or [id number] 05:58:00* Test Item Value Reference Range Interpretation Comme nts phosphorous level (test code = phosphorous level) 2.3 mg/dL 2.5-4.5 L [facility] CenterMagnesium [Moles/volume] in Unspecified specimen 2019-07-06 05:58:00* Test Item Value Reference Range Interpretation Comme nts magnesium level (test code = magnesium level) 1.7 mg/dL 1.6-2.6 [facility] CenterCB W Auto Differential panel - [id number] 05:58:00 * Test Item Value Reference Range Interpretation Comme nts white blood count (test code = white blood count) 5.6 K/uL 4.0-11.5 red blood count (test code = red blood count) 4.26 M/uL 3.80-5.20 hemoglobin (test code = hemoglobin) 10.9 g/dL 10.5-15.7 hematocrit (test code = hematocrit) 33.9 % 34.0-50.0 L Erythrocyte mean corpuscular volume [Entitic volume] (test code = 65962-5) 79.6 fL 86-100 L mean corpuscular hemoglobin (test code = mean corpuscular hemoglobin) 25.6 pg 26.2-33.4 L mean corpuscular HGB conc (t est code = mean corpuscular HGB conc) 32.2 g/dL 30-34 red cell distribution width (test code = red cell distribution width) 15.1 % 12.0-15.5 platelet count (test code = platelet count) 335 K/uL 165-450 mean platelet volume (test c ode = mean platelet volume) 9.1 fL 9.4-12.6 L Neutrophils.segmented/100 leukocytes in Blood (test code = 22120-3) 64.2 % 44.4-80.1 Granulocytes Immature [#/vol ume] in Blood (test code = 74108-1) 0.0 K/uL 0.0-0.03 lymphocyte% (test code = lymphocyte%) 23.8 % 10.0-50.0 mono % (test code = mono %) 10.0 % 3.6-12.0 eos % (test code = eos %) 1.3 % 0.0-5.4 Basophils/100 leukocytes in Unspecified specimen (test code = 45491-0) 0.5 % 0.1-1.2 Neutrophils.band form [#/vol ume] in Blood (test code = 72601-5) 3.60 K/uL 1.56-6.13 Lymphocytes [#/volume] in Unspecified specimen by Automated count (test code = 27039-7) 1.3 K/uL 1.18-3.74 mono # (test code = mono #) 0.56 K/uL 0.24-0.86 eos # (test code = eos #) 0.07 K/uL 0.04-0.36 basophil # (test code = baso jonathan #) 0.03 K/uL 0.01-0.08 NRBC% (test code = NRBC%) 0 /100 WBC 0-0.2 NRBC# (test code = NRBC#) 0 K/uL [facility] Centerdifferent[facility], [id number] 05:58:00 NeutrophilsBandLymphocyteMonocyteEosinophilPlatelet EstimateMaSinging River GulfportComprehensive metabolic 2000 panel - Serum or [id number] 05:58:00* Test Item Value Reference Range Interpretation Comme nts Glucose [Mass/volume] in Ser um or Plasma (test code = 2345-7) 93 mg/dL 74-106 Urea nitrogen [Mass/volume] in Serum or Plasma (test code = 3094-0) 9 mg/dL 6-20 osmolality calculated,serum (test code = osmolality calculated,serum) 269 mOsm/kg 280-300 L creatinine (test code = creatinine) 0.7 mg/dL 0.50-0.90 glomerular filtration rate ( test code = glomerular filtration rate) >60.00 Urea nitrogen/Creatinine [Ma ss Ratio] in Serum or Plasma (test code = 3097-3) 12.9 12-20 sodium level (test code = so dium level) 135 mmol/L 135-145 potassium level (test code = potassium level) 4.1 mmol/L 3.5-5.2 chloride level (test code = chloride level) 102 mmol/L 98-108 CO2 (test code = CO2) 24 mmol/L 21-32 anion gap (test code = anion gap) 13.1 mEq/L 12-20 calcium level (test code = calcium level) 8.7 mg/dL 8.6-10.0 total protein (test code = t otal protein) 6.4 g/dL 6.6-8.7 L albumin (test code = albumin) 3.3 g/dL 3.5-5.2 L globulin (test code = globulin) 3.1 gm/dL A/G ratio (test code = A/G ratio) 1.1 >1.0 bilirubin,total (test code = bilirubin,total) 1.1 mg/dL 0.0-1.2 AST/SGOT (test code = AST/SGOT) 210 U/L 15-32 H Alanine aminotransferase [Enzymatic activity/volume] in Serum or Plasma (test code = 1742-6) 289 U/L 0-33 H Alkaline phosphatase [Enzyma tic activity/volume] in Serum or Plasma (test code = 6768-6) 177 U/L 35-105 H [facility] Centerlprocal2020-02-[facility] 05:58:00* Test Item Value Reference Range Interpretation Comme nts Procalcitonin [Mass/volume] in Serum or Plasma (test code = 94537-0) 0.1 NG/mL 0.0-0.8 [facility] CenterPhosphate [Mass/volume] in Serum or [id number] 05:58:00* Test Item Value Reference Range Interpretation Comme nts phosphorous level (test code = phosphorous level) 2.3 mg/dL 2.5-4.5 L [facility] CenterMagnesium [Moles/volume] in Unspecified specimen 2019-07-06 05:58:00* Test Item Value Reference Range Interpretation Comme nts magnesium level (test code = magnesium level) 1.7 mg/dL 1.6-2.6 [facility] CenterCBC W Auto Differential panel - [id number] 05:58:00 * Test Item Value Reference Range Interpretation Comme nts white blood count (test code = white blood count) 5.6 K/uL 4.0-11.5 red blood count (test code = red blood count) 4.26 M/uL 3.80-5.20 hemoglobin (test code = hemoglobin) 10.9 g/dL 10.5-15.7 hematocrit (test code = hematocrit) 33.9 % 34.0-50.0 L Erythrocyte mean corpuscular volume [Entitic volume] (test code = 92302-1) 79.6 fL 86-100 L mean corpuscular hemoglobin (test code = mean corpuscular hemoglobin) 25.6 pg 26.2-33.4 L mean corpuscular HGB conc (t est code = mean corpuscular HGB conc) 32.2 g/dL 30-34 red cell distribution width (test code = red cell distribution width) 15.1 % 12.0-15.5 platelet count (test code = platelet count) 335 K/uL 165-450 mean platelet volume (test c ode = mean platelet volume) 9.1 fL 9.4-12.6 L Neutrophils.segmented/100 leukocytes in Blood (test code = 49256-8) 64.2 % 44.4-80.1 Granulocytes Immature [#/vol ume] in Blood (test code = 35621-6) 0.0 K/uL 0.0-0.03 lymphocyte% (test code = lymphocyte%) 23.8 % 10.0-50.0 mono % (test code = mono %) 10.0 % 3.6-12.0 eos % (test code = eos %) 1.3 % 0.0-5.4 Basophils/100 leukocytes in Unspecified specimen (test code = 06402-8) 0.5 % 0.1-1.2 Neutrophils.band form [#/vol ume] in Blood (test code = 66502-6) 3.60 K/uL 1.56-6.13 Lymphocytes [#/volume] in Unspecified specimen by Automated count (test code = 70211-2) 1.3 K/uL 1.18-3.74 mono # (test code = mono #) 0.56 K/uL 0.24-0.86 eos # (test code = eos #) 0.07 K/uL 0.04-0.36 basophil # (test code = baso jonathan #) 0.03 K/uL 0.01-0.08 NRBC% (test code = NRBC%) 0 /100 WBC 0-0.2 NRBC# (test code = NRBC#) 0 K/uL [facility] Centerdifferent[facility], [id number] 05:58:00 NeutrophilsBandLymphocyteMonocyteEosinophilPlatelet EstimateMataChoctaw Health CenterComprehensive metabolic 2000 panel - Serum or [id number] 05:58:00* Test Item Value Reference Range Interpretation Comme nts Glucose [Mass/volume] in Ser um or Plasma (test code = 2345-7) 93 mg/dL 74-106 Urea nitrogen [Mass/volume] in Serum or Plasma (test code = 3094-0) 9 mg/dL 6-20 osmolality calculated,serum (test code = osmolality calculated,serum) 269 mOsm/kg 280-300 L creatinine (test code = creatinine) 0.7 mg/dL 0.50-0.90 glomerular filtration rate ( test code = glomerular filtration rate) >60.00 Urea nitrogen/Creatinine [Ma ss Ratio] in Serum or Plasma (test code = 3097-3) 12.9 12-20 sodium level (test code = so dium level) 135 mmol/L 135-145 potassium level (test code = potassium level) 4.1 mmol/L 3.5-5.2 chloride level (test code = chloride level) 102 mmol/L 98-108 CO2 (test code = CO2) 24 mmol/L 21-32 anion gap (test code = anion gap) 13.1 mEq/L 12-20 calcium level (test code = calcium level) 8.7 mg/dL 8.6-10.0 total protein (test code = t otal protein) 6.4 g/dL 6.6-8.7 L albumin (test code = albumin) 3.3 g/dL 3.5-5.2 L globulin (test code = globulin) 3.1 gm/dL A/G ratio (test code = A/G ratio) 1.1 >1.0 bilirubin,total (test code = bilirubin,total) 1.1 mg/dL 0.0-1.2 AST/SGOT (test code = AST/SGOT) 210 U/L 15-32 H Alanine aminotransferase [Enzymatic activity/volume] in Serum or Plasma (test code = 1742-6) 289 U/L 0-33 H Alkaline phosphatase [Enzyma tic activity/volume] in Serum or Plasma (test code = 6768-6) 177 U/L 35-105 H [facility] Centerlprocal[facility] 05:58:00* Test Item Value Reference Range Interpretation Comme nts Procalcitonin [Mass/volume] in Serum or Plasma (test code = 41997-0) 0.1 NG/mL 0.0-0.8 [facility] CenterPhosphate [Mass/volume] in Serum or [id number] 05:58:00* Test Item Value Reference Range Interpretation Comme nts phosphorous level (test code = phosphorous level) 2.3 mg/dL 2.5-4.5 L [facility] CenterMagnesium [Moles/volume] in Unspecified specimen 2019-07-06 05:58:00* Test Item Value Reference Range Interpretation Comme nts magnesium level (test code = magnesium level) 1.7 mg/dL 1.6-2.6 [facility] CenterPT/[id number] 00:00:00* Test Item Value Reference Range Interpretation Comme nts prothrombin time (test code = prothrombin time) 10.9 seconds 10.3-12.3 INR in Blood by Coagulation assay (test code = 28168-7) 1.01 [facility] Centerpartial thromboplastin [id number] 00:00:00* Test Item Value Reference Range Interpretation Comme nts INR in Blood by Coagulation assay (test code = 12183-2) 31.5 seconds 22.5-37.0 [facility] CenterPT/[id number] 00:00:00* Test Item Value Reference Range Interpretation Comme nts prothrombin time (test code = prothrombin time) 10.9 seconds 10.3-12.3 INR in Blood by Coagulation assay (test code = 81592-5) 1.01 [facility] [id number] 00:00:00* Test Item Value Reference Range Interpretation Comme nts INR in Blood by Coagulation assay (test code = 27128-8) 31.5 seconds 22.5-37.0 [facility]PT/[id number] 00:00:00* Test Item Value Reference Range Interpretation Comme nts prothrombin time (test code = prothrombin time) 10.9 seconds 10.3-12.3 INR in Blood by Coagulation assay (test code = 43608-0) 1.01 [facility] [id number] 00:00:00* Test Item Value Reference Range Interpretation Comme nts INR in Blood by Coagulation assay (test code = 62298-7) 31.5 seconds 22.5-37.0 [facility]Com[facility] 2000 [facility] - Serum or Plasma 2019-07-03 11:41:00* Test Item Value Reference Range Interpretation Comme nts Glucose [Mass/volume] in Ser um or Plasma (test code = 2345-7) 100 mg/dL 74-106 Urea nitrogen [Mass/volume] in Serum or Plasma (test code = 3094-0) 29 mg/dL 6-20 H osmolality calculated,serum (test code = osmolality calculated,serum) 278 mOsm/kg 280-300 L creatinine (test code = creatinine) 0.8 mg/dL 0.50-0.90 glomerular filtration rate ( test code = glomerular filtration rate) >60.00 Urea nitrogen/Creatinine [Ma ss Ratio] in Serum or Plasma (test code = 3097-3) 36.3 12-20 H sodium level (test code = so dium level) 136 mmol/L 135-145 potassium level (test code = potassium level) 3.8 mmol/L 3.5-5.2 chloride level (test code = chloride level) 101 mmol/L 98-108 CO2 (test code = CO2) 25 mmol/L 21-32 anion gap (test code = anion gap) 13.8 mEq/L 12-20 calcium level (test code = calcium level) 9.0 mg/dL 8.6-10.0 total protein (test code = t otal protein) 6.5 g/dL 6.6-8.7 L albumin (test code = albumin) 3.6 g/dL 3.5-5.2 globulin (test code = globulin) 2.9 gm/dL A/G ratio (test code = A/G ratio) 1.2 >1.0 bilirubin,total (test code = bilirubin,total) <0.3 0.0-1.2 AST/SGOT (test code = AST/SGOT) 19 U/L 15-32 Alanine aminotransferase [Enzymatic activity/volume] in Serum or Plasma (test code = 1742-6) 21 U/L 0-33 Alkaline phosphatase [Enzyma tic activity/volume] in Serum or Plasma (test code = 6768-6) 84 U/L 35-105 [facility] [En[facility]atic activity/volume] in Serum or Plasma 2019-07-03 11:41:00* Test Item Value Reference Range Interpretation Comme nts lipase (test code = lipase) 35 U/L 13-60 [facility] GroupLact[facility] [Mass/volume] in Serum or [id number] 11:41:00* Test Item Value Reference Range Interpretation Comme nts lactic acid (test code = lac tic acid) 0.65 mmol/L 0.5-2.2 [facility] Differential panel - [id number] 11:41:00 * Test Item Value Reference Range Interpretation Comme nts white blood count (test code = white blood count) 8.0 K/uL 4.0-11.5 red blood count (test code = red blood count) 4.28 M/uL 3.80-5.20 hemoglobin (test code = hemoglobin) 10.9 g/dL 10.5-15.7 hematocrit (test code = hematocrit) 33.1 % 34.0-50.0 L Erythrocyte mean corpuscular volume [Entitic volume] (test code = 87965-0) 77.3 fL 86-100 L mean corpuscular hemoglobin (test code = mean corpuscular hemoglobin) 25.5 pg 26.2-33.4 L mean corpuscular HGB conc (t est code = mean corpuscular HGB conc) 32.9 g/dL 30-34 red cell distribution width (test code = red cell distribution width) 14.9 % 12.0-15.5 platelet count (test code = platelet count) 366 K/uL 165-450 mean platelet volume (test c ode = mean platelet volume) 9.3 fL 9.4-12.6 L Neutrophils.segmented/100 leukocytes in Blood (test code = 08693-4) 57.4 % 44.4-80.1 Granulocytes Immature [#/vol ume] in Blood (test code = 58701-8) 0.0 K/uL 0.0-0.03 lymphocyte% (test code = lymphocyte%) 28.3 % 10.0-50.0 mono % (test code = mono %) 11.2 % 3.6-12.0 eos % (test code = eos %) 2.4 % 0.0-5.4 Basophils/100 leukocytes in Unspecified specimen (test code = 99515-7) 0.6 % 0.1-1.2 Neutrophils.band form [#/vol ume] in Blood (test code = 61998-1) 4.60 K/uL 1.56-6.13 Lymphocytes [#/volume] in Unspecified specimen by Automated count (test code = 49554-6) 2.3 K/uL 1.18-3.74 mono # (test code = mono #) 0.90 K/uL 0.24-0.86 H eos # (test code = eos #) 0.19 K/uL 0.04-0.36 basophil # (test code = baso jonathan #) 0.05 K/uL 0.01-0.08 NRBC% (test code = NRBC%) 0 /100 WBC 0-0.2 NRBC# (test code = NRBC#) 0 K/uL [facility]different[facility], [id number] 11:41:00 NeutrophilsBandLymphocyteMonocyteEosinophilBasophilPlatelet EstimatePlatelet MorphologyDifferentialcomment-[facility] CenterComprehensive metabolic 2000 panel - Serum or [id number] 11:41:00* Test Item Value Reference Range Interpretation Comme nts Glucose [Mass/volume] in Ser um or Plasma (test code = 2345-7) 100 mg/dL 74-106 Urea nitrogen [Mass/volume] in Serum or Plasma (test code = 3094-0) 29 mg/dL 6-20 H osmolality calculated,serum (test code = osmolality calculated,serum) 278 mOsm/kg 280-300 L creatinine (test code = creatinine) 0.8 mg/dL 0.50-0.90 glomerular filtration rate ( test code = glomerular filtration rate) >60.00 Urea nitrogen/Creatinine [Ma ss Ratio] in Serum or Plasma (test code = 3097-3) 36.3 12-20 H sodium level (test code = so dium level) 136 mmol/L 135-145 potassium level (test code = potassium level) 3.8 mmol/L 3.5-5.2 chloride level (test code = chloride level) 101 mmol/L 98-108 CO2 (test code = CO2) 25 mmol/L 21-32 anion gap (test code = anion gap) 13.8 mEq/L 12-20 calcium level (test code = calcium level) 9.0 mg/dL 8.6-10.0 total protein (test code = t otal protein) 6.5 g/dL 6.6-8.7 L albumin (test code = albumin) 3.6 g/dL 3.5-5.2 globulin (test code = globulin) 2.9 gm/dL A/G ratio (test code = A/G ratio) 1.2 >1.0 bilirubin,total (test code = bilirubin,total) <0.3 0.0-1.2 AST/SGOT (test code = AST/SGOT) 19 U/L 15-32 Alanine aminotransferase [Enzymatic activity/volume] in Serum or Plasma (test code = 1742-6) 21 U/L 0-33 Alkaline phosphatase [Enzyma tic activity/volume] in Serum or Plasma (test code = 6768-6) 84 U/L 35-105 [facility] [Enzymatic activity/volume] in Serum or Plasma 2019-07-03 11:41:00* Test Item Value Reference Range Interpretation Comme nts lipase (test code = lipase) 35 U/L 13-60 [facility] GroupLactate [Mass/volume] in Serum or [id number] 11:41:00* Test Item Value Reference Range Interpretation Comme nts lactic acid (test code = lac tic acid) 0.65 mmol/L 0.5-2.2 [facility] W Auto Differential panel - [id number] 11:41:00 * Test Item Value Reference Range Interpretation Comme nts white blood count (test code = white blood count) 8.0 K/uL 4.0-11.5 red blood count (test code = red blood count) 4.28 M/uL 3.80-5.20 hemoglobin (test code = hemoglobin) 10.9 g/dL 10.5-15.7 hematocrit (test code = hematocrit) 33.1 % 34.0-50.0 L Erythrocyte mean corpuscular volume [Entitic volume] (test code = 64503-3) 77.3 fL 86-100 L mean corpuscular hemoglobin (test code = mean corpuscular hemoglobin) 25.5 pg 26.2-33.4 L mean corpuscular HGB conc (t est code = mean corpuscular HGB conc) 32.9 g/dL 30-34 red cell distribution width (test code = red cell distribution width) 14.9 % 12.0-15.5 platelet count (test code = platelet count) 366 K/uL 165-450 mean platelet volume (test c ode = mean platelet volume) 9.3 fL 9.4-12.6 L Neutrophils.segmented/100 leukocytes in Blood (test code = 49339-2) 57.4 % 44.4-80.1 Granulocytes Immature [#/vol ume] in Blood (test code = 87110-1) 0.0 K/uL 0.0-0.03 lymphocyte% (test code = lymphocyte%) 28.3 % 10.0-50.0 mono % (test code = mono %) 11.2 % 3.6-12.0 eos % (test code = eos %) 2.4 % 0.0-5.4 Basophils/100 leukocytes in Unspecified specimen (test code = 27930-7) 0.6 % 0.1-1.2 Neutrophils.band form [#/vol ume] in Blood (test code = 16881-3) 4.60 K/uL 1.56-6.13 Lymphocytes [#/volume] in Unspecified specimen by Automated count (test code = 35596-3) 2.3 K/uL 1.18-3.74 mono # (test code = mono #) 0.90 K/uL 0.24-0.86 H eos # (test code = eos #) 0.19 K/uL 0.04-0.36 basophil # (test code = baso jonathan #) 0.05 K/uL 0.01-0.08 NRBC% (test code = NRBC%) 0 /100 WBC 0-0.2 NRBC# (test code = NRBC#) 0 K/uL [facility]different[facility], [id number] 11:41:00 NeutrophilsBandLymphocyteMonocyteEosinophilBasophilPlatelet EstimatePlatelet MorphologyDifferentialcomment-[facility] CenterUrinalysis complete panel - [id number] 10:58:00* Test Item Value Reference Range Interpretation Comme nts Color of Urine by Auto (test code = 67013-6) yellow Appearance of Urine (test co de = 5767-9) clear clear Glucose [Presence] in Urine by Automated test strip (test code = 36784-1) negative negative Bilirubin.total [Mass/volume ] in Urine (test code = 1978-) negative negative Ketones [Mass/volume] in Uri ne by Automated test strip (test code = 55999-1) negative negative Specific gravity of Urine by Automated test strip (test code = 00359-4) 1.013 1.003-1.030 blood urine (test code = blo od urine) negative negative pH of Urine (test code = 2756-5) 7.000 5-9 protein urine (UA) (test cod e = protein urine (UA)) negative negative Urobilinogen [Presence] in Urine (test code = 90460-8) normal 0.2-1.0 Nitrite [Presence] in Urine by Test strip (test code = 5802-4) negative negative Leukocyte esterase [Presence ] in Urine by Automated test strip (test code = 96823-8) negative negative Erythrocytes [#/volume] in Urine by Automated count (test code = 798-9) <1 0-5 Leukocytes [#/area] in Urine sediment by Automated count (test code = 72648-9) =1-5 0-5 Epithelial cells [Presence] in Urine sediment by Light microscopy (test code = 72920-1) =1-5 0-5 Bacteria identified in Urine by Culture (test code = 630-4) trace none detect Casts [#/area] in Urine sediment by Automated count (test code = 12681-4) none detected none detect urine culture added? (test c ode = urine culture added?) [facility] GroupUrinal[facility] complete [facility] - [id number] 10:58:00* Test Item Value Reference Range Interpretation Comme nts Color of Urine by Auto (test code = 30982-9) yellow Appearance of Urine (test co de = 5767-9) clear clear Glucose [Presence] in Urine by Automated test strip (test code = 82516-4) negative negative Bilirubin.total [Mass/volume ] in Urine (test code = 1978-6) negative negative Ketones [Mass/volume] in Uri ne by Automated test strip (test code = 06077-0) negative negative Specific gravity of Urine by Automated test strip (test code = 54616-6) 1.013 1.003-1.030 blood urine (test code = blo od urine) negative negative pH of Urine (test code = 2756-5) 7.000 5-9 protein urine (UA) (test cod e = protein urine (UA)) negative negative Urobilinogen [Presence] in Urine (test code = 76375-7) normal 0.2-1.0 Nitrite [Presence] in Urine by Test strip (test code = 5802-4) negative negative Leukocyte esterase [Presence ] in Urine by Automated test strip (test code = 50050-2) negative negative Erythrocytes [#/volume] in Urine by Automated count (test code = 798-9) <1 0-5 Leukocytes [#/area] in Urine sediment by Automated count (test code = 25614-1) =1-5 0-5 Epithelial cells [Presence] in Urine sediment by Light microscopy (test code = 68566-0) =1-5 0-5 Bacteria identified in Urine by Culture (test code = 630-4) trace none detect Casts [#/area] in Urine sediment by Automated count (test code = 91213-4) none detected none detect urine culture added? (test c ode = urine culture added?) [facility] W Auto Differential panel - [id number] 06:31:00 * Test Item Value Reference Range Interpretation Comme nts white blood count (test code = white blood count) 6.7 K/uL 4.0-11.5 red blood count (test code = red blood count) 4.32 M/uL 3.80-5.20 hemoglobin (test code = hemoglobin) 11.1 g/dL 10.5-15.7 hematocrit (test code = hematocrit) 33.3 % 34.0-50.0 L Erythrocyte mean corpuscular volume [Entitic volume] (test code = 11981-4) 77.1 fL 86-100 L mean corpuscular hemoglobin (test code = mean corpuscular hemoglobin) 25.7 pg 26.2-33.4 L mean corpuscular HGB conc (t est code = mean corpuscular HGB conc) 33.3 g/dL 30-34 red cell distribution width (test code = red cell distribution width) 15.3 % 12.0-15.5 platelet count (test code = platelet count) 365 K/uL 165-450 mean platelet volume (test c ode = mean platelet volume) 8.5 fL 9.4-12.6 L Neutrophils.segmented/100 leukocytes in Blood (test code = 71377-8) 60.7 % 44.4-80.1 Ig% (test code = Ig%) 0.3 % 0.0-0.4 lymphocyte% (test code = lymphocyte%) 26.2 % 10.0-50.0 mono % (test code = mono %) 10.6 % 3.6-12.0 eos % (test code = eos %) 1.8 % 0.0-5.4 Basophils/100 leukocytes in Unspecified specimen (test code = 26668-1) 0.4 % 0.1-1.2 absolute neutrophil count (t est code = absolute neutrophil count) 4.08 K/uL 1.56-6.13 Ig# (test code = Ig#) 0.0 K/uL 0.0-0.03 Lymphocytes [#/volume] in Unspecified specimen by Automated count (test code = 35502-9) 1.8 K/uL 1.18-3.74 mono # (test code = mono #) 0.71 K/uL 0.24-0.86 eos # (test code = eos #) 0.12 K/uL 0.04-0.36 basophil # (test code = baso jonathan #) 0.03 K/uL 0.01-0.08 NRBC% (test code = NRBC%) 0 /100 WBC 0-0.2 NRBC# (test code = NRBC#) 0 K/uL [facility] metabolic 2000 panel - Serum or [id number] 06:31:00* Test Item Value Reference Range Interpretation Comme nts glucose (test code = glucose) 105 mg/dL 74-106 Urea nitrogen [Mass/volume] in Serum or Plasma (test code = 3094-0) 22 mg/dL 6-20 H osmolality calculated, serum (test code = osmolality calculated, serum) 276 280-300 L creatinine (test code = creatinine) 0.8 mg/dL 0.50-0.90 glomerular filtration rate ( test code = glomerular filtration rate) >60.00 Urea nitrogen/Creatinine [Ma ss Ratio] in Serum or Plasma (test code = 3097-3) 27.5 12-20 H sodium level (test code = so dium level) 136 mmol/L 135-145 Potassium [Moles/volume] in Body fluid (test code = 2821-7) 4.4 mmol/L 3.5-5.2 chloride level (test code = chloride level) 102 mmol/L 98-108 CO2 (test code = CO2) 25 mmol/L 21-32 anion gap (test code = anion gap) 13.4 mEq/L 12-20 calcium level (test code = c alcium level) 9.4 mg/dL 8.6-10.0 [facility] - [id number] 06:00:00* Test Item Value Reference Range Interpretation Comme nts Color of Urine by Auto (test code = 71892-9) colorless Appearance of Urine (test co de = 5767-9) clear clear Glucose [Presence] in Urine by Automated test strip (test code = 76707-8) negative negative Bilirubin.total [Mass/volume ] in Urine (test code = 1978-6) negative negative Ketones [Mass/volume] in Uri ne by Automated test strip (test code = 94651-7) negative negative Specific gravity of Urine by Automated test strip (test code = 95617-0) 1.012 1.003-1.030 blood urine (test code = blo od urine) negative negative pH of Urine (test code = 2756-5) 6.500 5-9 protein urine (UA) (test cod e = protein urine (UA)) negative negative Urobilinogen [Presence] in Urine (test code = 00625-8) normal 0.2-1.0 Nitrite [Presence] in Urine by Test strip (test code = 5802-4) negative negative Leukocyte esterase [Presence ] in Urine by Automated test strip (test code = 59194-8) negative negative Erythrocytes [#/volume] in Urine by Automated count (test code = 798-9) <1 0-5 Leukocytes [#/area] in Urine sediment by Automated count (test code = 89779-9) <1 0-5 Epithelial cells [Presence] in Urine sediment by Light microscopy (test code = 30745-0) =1-5 0-5 Bacteria identified in Urine by Culture (test code = 630-4) small(1 none detect Casts [#/area] in Urine sediment by Automated count (test code = 12183-4) none detected none detect urine culture added? (test c ode = urine culture added?) yes [facility] CenterCreatine kinase [Enzymatic activity/volume] in Serum or [id number] 06:02:00* Test Item Value Reference Range Interpretation Comme nts creatine kinase (test code = creatine kinase) 1021 U/L 20-180 [facility] GroupTrop[facility] I.cardiac [Mass/volume] in [id number] 06:02:00* Test Item Value Reference Range Interpretation Comme nts cardiac troponin I (test cod e = cardiac troponin I) <0.30 0.0-0.5 [facility] GroupCreatine kinase.MB [Mass/volume] in Serum or Plasma 2019-01-10 06:02:00* Test Item Value Reference Range Interpretation Comme nts mass creatinine kinase-mb (t est code = mass creatinine kinase-mb) 3.1 NG/mL 0.0-3.6 [facility] GroupTroponin I.cardiac [Mass/volume] in [id number] 01:30:00* Test Item Value Reference Range Interpretation Comme nts cardiac troponin I (test cod e = cardiac troponin I) <0.30 0.0-0.5 [facility] GroupCreatine kinase.MB [Mass/volume] in Serum or Plasma 2019-01-10 01:30:00* Test Item Value Reference Range Interpretation Comme nts mass creatinine kinase-mb (t est code = mass creatinine kinase-mb) 2.9 NG/mL 0.0-3.6 [facility] GroupCreatine kinase [Enzymatic activity/volume] in Serum or [id number] 01:30:00* Test Item Value Reference Range Interpretation Comme nts creatine kinase (test code = creatine kinase) 1200 U/L 20-180 [facility] GroupTroponin I.cardiac [Mass/volume] in Oikjf4806-72-87 09:17:00* Test Item Value Reference Range Interpretation Comme nts cardiac troponin I (test cod e = cardiac troponin I) <0.30 0.0-0.5 [facility] GroupCreatine kinase.MB [Mass/volume] in Serum or Plasma 2019-01-09 09:17:00* Test Item Value Reference Range Interpretation Comme nts mass creatinine kinase-mb (t est code = mass creatinine kinase-mb) 3.8 NG/mL 0.0-3.6 H [facility] GroupCreatine kinase [Enzymatic activity/volume] in Serum or [id number] 09:17:00* Test Item Value Reference Range Interpretation Comme nts creatine kinase (test code = creatine kinase) 1139 U/L 20-180 [facility] CenterTroponin I.cardiac [Mass/volume] in [id number] 05:04:00* Test Item Value Reference Range Interpretation Comme nts cardiac troponin I (test cod e = cardiac troponin I) <0.30 0.0-0.5 [facility] CenterCreatine kinase.MB [Mass/volume] in Serum or Plasma 2019-01-09 05:04:00* Test Item Value Reference Range Interpretation Comme nts mass creatinine kinase-mb (t est code = mass creatinine kinase-mb) 4.3 NG/mL 0.0-3.6 [facility] GroupMy[facility] [Mass/volume] in Serum or [id number] 05:04:00* Test Item Value Reference Range Interpretation Comme nts myoglobin (test code = myoglobin) 113 NG/mL 25-58 H [facility] GroupCreat[facility] kinase [Enzymatic activity/volume] in Serum or Aehxmc4553-75-23 05:04:00* Test Item Value Reference Range Interpretation Comme nts creatine kinase (test code = creatine kinase) 1188 U/L 20-180 [facility] W Auto Differential panel - [id number] 02:52:00 * Test Item Value Reference Range Interpretation Comme nts white blood count (test code = white blood count) 7.1 K/uL 4.0-11.5 red blood count (test code = red blood count) 4.92 M/uL 3.80-5.20 hemoglobin (test code = hemoglobin) 11.9 g/dL 10.5-15.7 hematocrit (test code = hematocrit) 37.7 % 34.0-50.0 Erythrocyte mean corpuscular volume [Entitic volume] (test code = 86197-6) 76.6 fL 86-100 L mean corpuscular hemoglobin (test code = mean corpuscular hemoglobin) 24.2 pg 26.2-33.4 L mean corpuscular HGB conc (t est code = mean corpuscular HGB conc) 31.6 g/dL 30-34 red cell distribution width (test code = red cell distribution width) 15.8 % 12.0-15.5 H platelet count (test code = platelet count) 457 K/uL 165-450 H mean platelet volume (test c ode = mean platelet volume) 8.9 fL 9.4-12.6 L Neutrophils.segmented/100 leukocytes in Blood (test code = 88533-6) 51.1 % 44.4-80.1 Ig% (test code = Ig%) 0.3 % 0.0-0.4 lymphocyte% (test code = lymphocyte%) 35.6 % 10.0-50.0 mono % (test code = mono %) 10.3 % 3.6-12.0 eos % (test code = eos %) 2.1 % 0.0-5.4 Basophils/100 leukocytes in Unspecified specimen (test code = 71536-6) 0.6 % 0.1-1.2 absolute neutrophil count (t est code = absolute neutrophil count) 3.63 K/uL 1.56-6.13 Ig# (test code = Ig#) 0.0 K/uL 0.0-0.03 Lymphocytes [#/volume] in Unspecified specimen by Automated count (test code = 73322-8) 2.5 K/uL 1.18-3.74 mono # (test code = mono #) 0.73 K/uL 0.24-0.86 eos # (test code = eos #) 0.15 K/uL 0.04-0.36 basophil # (test code = baso jonathan #) 0.04 K/uL 0.01-0.08 NRBC% (test code = NRBC%) 0 /100 WBC 0-0.2 NRBC# (test code = NRBC#) 0 K/uL [facility]different[facility], [id number] 02:52:00 NeutrophilsBandLymphocyteAtypical LymphMonocyteEosinophilBasophilMetamyelocyteBlastsPlatelet EstimatePlatelet MorphologyHypochromasiaAnisocytosisMicrocytosisSpherocyteTarget CellsOvalocytesAcanthocytesSmudge CellsMataChoctaw Health CenterPT/[id number] 02:52:00* Test Item Value Reference Range Interpretation Comme nts prothrombin time (test code = prothrombin time) 11.1 seconds 10.3-12.3 INR in Blood by Coagulation assay (test code = 42814-9) 1.01 [facility]partial [facility]in [id number] 02:52:00* Test Item Value Reference Range Interpretation Comme nts INR in Blood by Coagulation assay (test code = 03190-1) 28.2 seconds 22.5-37.0 [facility] CenterCom[facility] 2000 panel - Serum or Plasma 2019-01-09 02:52:00* Test Item Value Reference Range Interpretation Comme nts glucose (test code = glucose) 102 mg/dL 74-106 Urea nitrogen [Mass/volume] in Serum or Plasma (test code = 3094-0) 17 mg/dL 6-20 osmolality calculated, serum (test code = osmolality calculated, serum) 279 280-300 L creatinine (test code = creatinine) 0.7 mg/dL 0.50-0.90 glomerular filtration rate ( test code = glomerular filtration rate) >60.00 Urea nitrogen/Creatinine [Ma ss Ratio] in Serum or Plasma (test code = 3097-3) 24.3 12-20 H sodium level (test code = so dium level) 139 mmol/L 135-145 Potassium [Moles/volume] in Body fluid (test code = 2821-7) 3.8 mmol/L 3.5-5.2 chloride level (test code = chloride level) 103 mmol/L 98-108 CO2 (test code = CO2) 24 mmol/L 21-32 anion gap (test code = anion gap) 15.8 mEq/L 12-20 calcium level (test code = c alcium level) 9.2 mg/dL 8.6-10.0 total protein (test code = t otal protein) 7.5 g/dL 6.6-8.7 albumin (test code = albumin) 4.1 g/dL 3.5-5.2 globulin (test code = globulin) 3.4 gm/dL A/G ratio (test code = A/G ratio) 1.2 >1.0 bilirubin,total (test code = bilirubin,total) 0.5 mg/dL 0.0-1.2 AST/SGOT (test code = AST/SGOT) 36 U/L 15-32 H Alanine aminotransferase [Enzymatic activity/volume] in Serum or Plasma (test code = 1742-6) 35 U/L 0-33 H Alkaline phosphatase [Enzyma tic activity/volume] in Serum or Plasma (test code = 6768-6) 84 U/L 35-105 [facility] CenterCreat[facility] kinase [Enzymatic activity/volume] in Serum or [id number] 02:52:00* Test Item Value Reference Range Interpretation Comme nts creatine kinase (test code = creatine kinase) 1406 U/L 20-180 H [facility] CenterNatriuretic peptide.B prohormone N-Terminal [Mass/volume] in Serum or [id number] 02:52:00* Test Item Value Reference Range Interpretation Comme nts N-term pro natriuretic pepti de (test code = N-term pro natriuretic peptide) 78 pg/mL 0-125 [facility] CenterTroponin I.cardiac [Mass/volume] in [id number] 02:52:00* Test Item Value Reference Range Interpretation Comme nts cardiac troponin I (test cod e = cardiac troponin I) <0.30 0.0-0.5 [facility] CenterCreatine kinase.MB [Mass/volume] in Serum or Plasma 2019-01-09 02:52:00* Test Item Value Reference Range Interpretation Comme nts mass creatinine kinase-mb (t est code = mass creatinine kinase-mb) 5.5 NG/mL 0.0-3.6 [facility]
[2023-10-01] MEDS ORDERED: KETOROLAC 30 MG/ML INJ ONE (01:33)
[2023-10-01] MEDS ORDERED: MORPHINE 4 MG/ML SYR ONE (01:33)
[2023-10-01] MEDS ORDERED: methocarbamoL 500 MG TAB ONE (01:33)
--- NOTE | 2023-10-01 03:48 | ER ---
Nurse's Notes [facility] Name: Chelita Ayala Age: 43 yrs Sex: Female : 1980 Arrival Date: 10/01/2023 Time: 01:00 Bed 13 Private MD: Diagnosis: Low back pain;Acute Lumbar sprain Presentation: 09/30 01:20 Chief complaint: Patient states: back pain X 3 days. Coronavirus screen: Vaccine vc1 status: Client denies travel out of the [place] in the last 14 days. At this time, the client does not indicate any symptoms associated with coronavirus-19. Ebola Screen: Patient negative for fever greater than or equal to 101.5 degrees Fahrenheit, and additional compatible Ebola Virus Disease symptoms Patient denies exposure to infectious person. Patient denies travel to an Ebola-affected area in the 21 days before illness onset. No symptoms or risks identified at this time. Initial Sepsis Screen: Does the patient meet any 2 criteria? No. Patient's initial sepsis screen is negative. Does the patient have a suspected source of infection? No. Patient's initial sepsis screen is negative. Risk Assessment: Do you want to hurt yourself or someone else? Patient reports no desire to harm self or others. Onset of symptoms was October 01, 2023. 01:20 Method Of Arrival: Ambulatory vc1 01:20 Acuity: ADAM 3 vc1 Triage Assessment: 01:28 General: Appears in no apparent distress. uncomfortable, Behavior is calm, cooperative, vc1 appropriate for age. Pain: Complains of pain in right low back and left low back and lumbar area Pain does not radiate. Pain currently is 10 out of 10 on a pain scale. Quality of pain is described as sharp, stabbing, Pain began 2-3 days ago. Is continuous, Aggravated by increased activity, weight bearing. Neuro: Level of Consciousness is awake, alert, obeys commands, Oriented to person, place, time, situation, Appropriate for age. Cardiovascular: No deficits noted. Respiratory: Airway is patent Respiratory effort is even, unlabored, Respiratory pattern is regular, symmetrical. Derm: Skin is intact, is healthy with good turgor, Skin is dry, Skin is normal, Skin temperature is warm. Musculoskeletal: Capillary refill < 3 seconds. Musculoskeletal: Reports pain in right low back and left low back and lumbar area. [employer]: 01:29 LMP 09/21/2023, unknown vc1 Historical: - Allergies: : No Known Allergies; vc1 - Home Meds: : None [Active]; vc1 - PMHx: : kidney stones; vc1 - PSHx: : Cholecystectomy; Appendectomy; Ligation of fallopian tube; vc1 - Immunization history:: Client reports receiving the 2nd dose of the Covid vaccine, Flu vaccine is not up to date. - Infectious Disease History:: Denies. - Social history:: Smoking status: Patient denies any tobacco usage or history of. - Family history:: not pertinent. Screenin:20 [facility] ED Fall Risk Assessment (Adult) History of falling in the last 3 months, jj7 including since admission No falls in past 3 months (0 pts) Confusion or Disorientation No (0 pts) Intoxicated or Sedated No (0 pts) Impaired Gait No (0 pts) Mobility Assist Device Used No (0 pt) Altered Elimination No (0 pt) Score/Fall Risk Level 0 - 2 = Low Risk Oriented to surroundings, Maintained a safe environment, Educated pt \T\ family on fall prevention, incl call for assistance when getting out of bed. Abuse screen: Denies threats or abuse. Nutritional screening: No deficits noted. Tuberculosis screening: No symptoms or risk factors identified. Assessment: :20 Pain: Complains of pain in lumbar area, left low back and right low back. Neuro: No jj7 deficits noted. Level of Consciousness is awake, alert, obeys commands, Oriented to person, place, time, situation, Appropriate for age. Musculoskeletal: Reports pain in back. Vital Signs: 01:20 BP 132 / 89; Pulse 75; Resp 14; Temp 97.8; Pulse Ox 100% ; Weight 108.86 kg; Height 5 vc1 ft. 7 in. ; Pain 10/10; 02:35 BP 135 / 91; Pulse 77; Resp 17; Pulse Ox 99% ; jj7 03:30 BP 174 / 90; Pulse 81; Resp 17; Temp 98.7; Pulse Ox 100% ; Pain 0/10; jj7 01:20 Body Mass Index 37.59 (108.86 kg, 170.18 cm) vc1 01:20 Pain Scale: Adult vc1 03:30 Pain Scale: Adult jj7 [place] Coma Score: 04:30 Eye Response: spontaneous(4). Motor Response: obeys commands(6). Verbal Response: sp4 oriented(5). Total: 15. ED Course: 01:04 Patient arrived in ED. mr 01:11 Saul Freeman MD is Attending Physician. sp4 01:20 Patient has correct armband on for positive identification. Bed in low position. Call jj7 light in reach. Adult w/ patient. Provided Education on: USE OF CALL SÁNCHEZ. 01:20 No provider procedures requiring assistance completed. jj7 01:23 Triage completed. vc1 01:25 Nova Johnson RN is Primary Nurse. jj7 01:28 Arm band placed on right wrist. vc1 02:11 CT Abd/Pelvis - Without Contrast In Process Unspecified. EDMI 03:54 IV discontinued, intact, bleeding controlled, No redness/swelling at site. Pressure jj7 dressing applied. Administered Medications: 01:41 Drug: Ketorolac IM 60 mg IM once Route: IM; Site: right deltoid; jj7 02:00 Follow up: Response: Marked relief of symptoms; Pain is decreased jj7 01:41 Drug: Methocarbamol PO 1500 mg PO once Route: PO; jj7 02:20 Follow up: Response: Marked relief of symptoms jj7 01:41 Drug: morphine IM 4 mg IM once Route: IM; Site: right deltoid; jj7 02:00 Follow up: Response: Marked relief of symptoms; Pain is decreased jj7 02:24 CANCELLED (Duplicate Order): morphineor iv 4 mg IVP once over 4 mins jj7 Medication: 01:20 VIS not applicable for this client. jj7 Outcome: 03:48 Discharge ordered by . sp4 03:54 Discharged to home ambulatory, with significant other, jj7 03:54 Condition: improved 03:54 Discharge instructions given to patient, Instructed on discharge instructions, medication usage, Demonstrated understanding of instructions, medications, Prescriptions given X 2, 03:54 Patient left the ED. jj7 Signatures: Dispatcher [employer] [facility] SterlingGerri, Reg Reg mr Xena Davidson RN RN vc1 Nova Johnson RN RN jSaul Madden MD MD sp4 Corrections: (The following items were deleted from the chart) 02:36 02:30 BP 113 / 63; Pulse 67bpm; Resp 16bpm; Pulse Ox 100%; jj7 jj7 04:16 04:16 Patient left the ED. jj7 jj7
--- NOTE | 2023-10-01 03:48 | EDPHYS ---
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 - Infectious Disease History:: Denies. - Social history:: Smoking status: Patient denies any tobacco usage or history of. - Family history:: not pertinent. ROS: 04:30 Constitutional: Negative for fever, chills, and weight loss, Back: Positive for back sp4 pain 04:30 All other systems are negative, Exam: 04:30 Constitutional: This is a well developed, well nourished patient who is awake, alert, sp4 and in no acute distress. Head/Face: Normocephalic, atraumatic. Eyes: Pupils equal round and reactive to light, extra-ocular motions intact. Lids and lashes normal. Conjunctiva and sclera are not injected. Cornea within normal limits. Periorbital areas with no swelling, redness, or edema. ENT: Nares patent. No nasal discharge, no septal abnormalities noted. Tympanic membranes are normal and external auditory canals are clear. Oropharynx with no redness, swelling, or masses, exudates, or evidence of obstruction, uvula midline. Mucous membranes moist. Neck: Trachea midline, no thyromegaly or masses palpated, and no cervical lymphadenopathy. Supple, full range of motion without nuchal rigidity, or vertebral point tenderness. Chest/axilla: Normal chest wall appearance and motion. Nontender with no deformity. No lesions are appreciated. Cardiovascular: Regular rate and rhythm with a normal S1 and S2. No gallops, murmurs, or rubs. Normal PMI, no JVD. No pulse deficits. Respiratory: Lungs have equal breath sounds bilaterally, clear to auscultation and percussion. No rales, rhonchi or wheezes noted. No increased work of breathing, no retractions or nasal flaring. Abdomen/GI: Soft, with normal bowel sounds. No distension or tympany. No guarding or rebound. No evidence of tenderness throughout. Back: No spinal tenderness. No costovertebral tenderness. Skin: Warm, dry with normal turgor. Normal color with no rashes, no lesions, and no evidence of cellulitis. MS/ Extremity: Pulses equal, no cyanosis. Neurovascular intact. Full, normal range of motion. Neuro: Awake and alert, GCS 15, oriented to person, place, time, and situation. Cranial nerves II-XII grossly intact. Motor strength 5/5 in all extremities. Sensory grossly intact. Psych: Awake, alert, with orientation to person, place and time. Behavior, mood, and affect are within normal limits Vital Signs: 01:20 BP 132 / 89; Pulse 75; Resp 14; Temp 97.8; Pulse Ox 100% ; Weight 108.86 kg; Height 5 vc1 ft. 7 in. ; Pain 10/10; 02:35 BP 135 / 91; Pulse 77; Resp 17; Pulse Ox 99% ; jj7 03:30 BP 174 / 90; Pulse 81; Resp 17; Temp 98.7; Pulse Ox 100% ; Pain 0/10; jj7 01:20 Body Mass Index 37.59 (108.86 kg, 170.18 cm) vc1 01:20 Pain Scale: Adult vc1 03:30 Pain Scale: Adult jj7 [place] Coma Score: 04:30 Eye Response: spontaneous(4). Motor Response: obeys commands(6). Verbal Response: sp4 oriented(5). Total: 15. MDM: 01:58 Patient medically screened. sp4 04:30 ED course: CLINICAL HISTORY: back pain COMPARISON: 01/28/2022. TECHNIQUE: CTABDOMEN sp4 PELVIS WITHOUT IV CONTRAST on 10/01/2023 1:20 AM CDT This exam was performed according to our departmental dose-optimization program, which includes automated exposure control, adjustment of the mA and/or kV according to patient size and/or use of iterative reconstruction technique. FINDINGS: Lower lungs are clear. Abdomen: The liver is normal in appearance. There is no biliary dilatation. Cholecystectomy was performed. The pancreas and spleen are normal in appearance. The adrenal glands and kidneys are unremarkable. Abdominal aorta is normal in course and caliber without aneurysm. There is no free air. There is no retroperitoneal adenopathy. Pelvis: There is no bowel obstruction. Urinary bladder is unremarkable. There is no free fluid. Uterus is normal in size. Appendectomy was performed. Skeleton: There are no acute osseous findings. No suspicious bony lesions. IMPRESSION: No acute process. Electronically signed. 04:30 Differential diagnosis: arthritis, Fatigue Fracture Obesity Scoliosis. Data reviewed: sp4 vital signs, nurses notes, radiologic studies, CT scan. Consideration of Admission/Observation. ED course: Patient is neurologically intact,. Ambulates without assistance, we will discharge her with as needed pain medication will recommend bedrest for the next 3 days. . 09/30 01:20 Order name: CT Abd/Pelvis - Without Contrast sp4 Administered Medications: 01:41 Drug: Ketorolac IM 60 mg IM once Route: IM; Site: right deltoid; jj7 02:00 Follow up: Response: Marked relief of symptoms; Pain is decreased jj7 01:41 Drug: Methocarbamol PO 1500 mg PO once Route: PO; jj7 02:20 Follow up: Response: Marked relief of symptoms jj7 01:41 Drug: morphine IM 4 mg IM once Route: IM; Site: right deltoid; jj7 02:00 Follow up: Response: Marked relief of symptoms; Pain is decreased jj7 02:24 CANCELLED (Duplicate Order): morphineor iv 4 mg IVP once over 4 mins jj7 Disposition Summary: 10/01/23 03:48 Discharge Ordered Problem: new sp4 Symptoms: have improved sp4 Condition: Stable sp4 Diagnosis - Low back pain sp4 - Acute Lumbar sprain sp4 Followup: sp4 - With: Private Physician - When: 7 - 10 days - Reason: Recheck today's complaints Discharge Instructions: - Discharge Summary Sheet sp4 - Acute Back Pain, Adult sp4 Forms: - Patient Portal Instructions sp4 Prescriptions: - Ibuprofen 800 mg Oral Tablet - take 1 tablet ORAL route every 8 hours As needed take with food; 30 tablet; sp4 Refills: 0, Product Selection Permitted - Tramadol 50 mg Oral tablet - take 1 tablet ORAL route every 8 hours as needed; 25 tablet; Refills: 0, sp4 Product Selection Permitted - methocarbamol 750 mg Oral tablet - take 2 tablets ORAL route every 8 hours for 2 days PRN muscle soreness; 60 sp4 tablet; Refills: 0, Product Selection Permitted Signatures: Dispatcher [employer] Xena Yung RN RN vc1 Nova Johnson RN RN jj7 Saul Freeman MD MD sp4 Corrections: (The following items were deleted from the chart) 02:24 01:20 morphine IVP or IV 4 mg IVP once over 4 mins ordered. sp4 jj7
[2023-10-01 04:40] VITALS: BP 174/90; TEMP 98.7; O2SAT 100
--- NOTE | 2023-10-01 11:51 | RAD REPORT ---
EXAM DESCRIPTION: CT ABDOMEN PELVIS WITHOUT IV CONTRAST CLINICAL HISTORY: Back pain COMPARISON: 01/28/2022. TECHNIQUE: CT ABDOMEN PELVIS WITHOUT IV CONTRAST on 10/01/2023 1:20 AM CDT This exam was performed according to our departmental dose-optimization program, which includes autom ated exposure control, adjustment of the mA and/or kV according to patient size and/or use of iterati ve reconstruction technique. FINDINGS: Lower lungs are clear. Abdomen: The liver is normal in appearance. There is no biliary dilatation. Cholecystectomy was perfo rmed. The pancreas and spleen are normal in appearance. The adrenal glands and kidneys are unremarkab le. Abdominal aorta is normal in course and caliber without aneurysm. There is no free air. There is no r etroperitoneal adenopathy. Pelvis: There is no bowel obstruction. Urinary bladder is unremarkable. There is no free fluid. Uteru s is normal in size. Appendectomy was performed. Skeleton: There are no acute osseous findings. No suspicious bony lesions. IMPRESSION: No acute process. Electronically signed by: Michael Overton MD 10/01/2023 04:27 AM CDT Due to temporary technical issues with the PACS/Fluency reporting system, reports are being signed by the in house radiologist without review as a courtesy to ensure prompt reporting. The interpreting r adiologist is fully responsible for the content of the report.
== END 2023-10-01 04:16 | disposition home or self-care (01) ==
LOC: ER 01:00
DX: S33.5XXA Sprain of ligaments of lumbar spine, initial encounter (principal)
CPT/HCPCS: 74176; 96372; 99284